=== PATIENT | female | born 1940 | race Caucasian/White ===

== ENCOUNTER 2018-02-07 15:08 | Outpatient (REF) | payer MEDICARE, OTHER, SELFPAY ==
[2018-02-07 17:02] LABS: Bilirubin Negative (Negative); Blood Negative (Negative); Clarity Cloudy; Glucose Negative (Negative); Ketones Negative (Negative); Leukocyte Esterase Trace (Negative); Nitrite Negative (Negative); Specific Gravity >= 1.030 (1.005-1.025); pH 5.5 (5-8)
[2018-02-07 17:26] LABS: C & S Indicated? No/Sq. Contamination; Crystals Many Amorphous HPF (Negative); Epithelial Cells Many HPF (Negative)
== END 2018-02-07 15:28 ==
LOC: LBN 15:08
PROVIDERS: PCP Family Medicine
DX: R35.0 Frequency of micturition (principal)
CPT/HCPCS: 81003; 81015

== ENCOUNTER 2018-02-14 10:23 | Outpatient (CLI) | payer MEDICARE, OTHER, SELFPAY ==
[2018-02-14 12:14] LABS: ALT 16 U/L (12-78); AST 17 U/L (15-37); Albumin 3.4 g/dL (3.4-5.0); Alkaline Phosphatase 70 U/L (46-116); Anion Gap 9.5 mmol/L (3-11); BUN 13 mg/dL (7-18); Bilirubin, Total 0.8 mg/dL (0.2-1.0); CO2 25.5 mmol/L (21.0-32.0); CREATININE 1.02 mg/dL (0.55-1.02); Calcium 8.5 mg/dL (8.5-10.1); Chloride 109 mmol/L (98-107); Estimated GFR 52.55 (mL/min/1.73m2); Glucose 86 mg/dL (70-100); Potassium 3.5 mmol/L (3.5-5.1); Sodium 144 mmol/L (136-145); Total Protein 6.4 g/dL (6.4-8.2)
== END 2018-02-14 10:43 ==
PROVIDERS: PCP Family Medicine
DX: R41.3 Other amnesia (principal); R63.4 Abnormal weight loss; E05.90 Thyrotoxicosis, unspecified without thyrotoxic crisis or storm
CPT/HCPCS: 36415; 80053

== ENCOUNTER 2018-02-22 10:28 | Outpatient (CLI) | payer MEDICARE, OTHER, SELFPAY ==
[2018-02-22 12:10] LABS: TSH (W/Ref FT4) 0.55 uIU/mL (0.358-3.74)
== END 2018-02-22 10:48 ==
PROVIDERS: PCP Family Medicine
DX: R63.4 Abnormal weight loss (principal)
CPT/HCPCS: 36415; 84443

== ENCOUNTER 2018-11-01 02:04 | Outpatient (CLI) | payer MEDICARE, OTHER, SELFPAY ==
[2018-11-01 13:40] LABS: ALT 23 U/L (12-78); AST 25 U/L (15-37); Albumin 3.3 g/dL (3.4-5.0); Alkaline Phosphatase 71 U/L (46-116); Anion Gap 13.2 mmol/L (3-11); BUN 11 mg/dL (7-18); Bilirubin, Total 0.7 mg/dL (0.2-1.0); CO2 30.8 mmol/L (21.0-32.0); Calcium 8.5 mg/dL (8.5-10.1); Chloride 104 mmol/L (98-107); Glucose 87 mg/dL (70-100); Sodium 148 mmol/L (136-145); TSH (W/Ref FT4) 0.21 uIU/mL (0.358-3.74); Total Protein 6.3 g/dL (6.4-8.2)
[2018-11-01 13:47] LABS: Potassium 2.6 mmol/L (3.5-5.1)
[2018-11-01 14:54] LABS: FREE T4 1.75 ng/dL (0.76-1.46)
== END 2018-11-01 02:24 ==
PROVIDERS: PCP Family Medicine
DX: E05.90 Thyrotoxicosis, unspecified without thyrotoxic crisis or storm (principal); F03.90 Unspecified dementia, unspecified severity, without behavioral disturbance, psychotic disturbance, mood disturbance, and anxiety; F41.9 Anxiety disorder, unspecified; G47.00 Insomnia, unspecified; I10 Essential (primary) hypertension; I48.91 Unspecified atrial fibrillation; R41.3 Other amnesia
CPT/HCPCS: 36415; 80053; 84439; 84443

== ENCOUNTER 2018-12-16 12:50 | Outpatient (CLI) | payer MEDICARE, OTHER, SELFPAY ==
[2018-12-16 14:54] LABS: ALT 19 U/L (12-78); AST 15 U/L (15-37); Albumin 3.7 g/dL (3.4-5.0); Alkaline Phosphatase 71 U/L (46-116); Anion Gap 12.6 mmol/L (3-11); BUN 21 mg/dL (7-18); Bilirubin, Total 0.3 mg/dL (0.2-1.0); CO2 23.4 mmol/L (21.0-32.0); CREATININE 1.02 mg/dL (0.55-1.02); Calcium 8.9 mg/dL (8.5-10.1); Chloride 107 mmol/L (98-107); Estimated GFR 52.41 (mL/min/1.73m2); Glucose 98 mg/dL (70-100); Potassium 4.1 mmol/L (3.5-5.1); Sodium 143 mmol/L (136-145); TSH (W/Ref FT4) 9.71 uIU/mL (0.358-3.74); Total Protein 6.6 g/dL (6.4-8.2)
== END 2018-12-16 13:10 ==
PROVIDERS: PCP Family Medicine
DX: F41.9 Anxiety disorder, unspecified; E03.9 Hypothyroidism, unspecified
CPT/HCPCS: 36415; 80053; 84439; 84443

== ENCOUNTER 2019-02-24 11:09 | Outpatient (CLI) | payer MEDICARE, OTHER, SELFPAY ==
[2019-02-24 13:37] LABS: Anion Gap 8.2 mmol/L (3-11); BUN 18 mg/dL (7-18); CO2 27.8 mmol/L (21.0-32.0); CREATININE 1.12 mg/dL (0.55-1.02); Calcium 8.8 mg/dL (8.5-10.1); Chloride 111 mmol/L (98-107); Estimated GFR 47.05 (mL/min/1.73m2); Glucose 76 mg/dL (70-100); Potassium 4.4 mmol/L (3.5-5.1); Sodium 147 mmol/L (136-145)
== END 2019-02-24 11:29 ==
PROVIDERS: PCP Family Medicine
DX: N28.9 Disorder of kidney and ureter, unspecified (principal); E03.9 Hypothyroidism, unspecified
CPT/HCPCS: 36415; 80048; 84439; 84443

== ENCOUNTER 2019-03-19 16:11 | Emergency (ER) | payer MEDICARE, OTHER, SELFPAY ==
[2019-03-19 16:22] VITALS: BP 108/83; PULSE 99; RESP 20; TEMP 37.4; O2SAT 97
--- NOTE | 2019-03-19 16:53 | W.ED.GENAD ---
Discharge Plan Disposition Patient Disposition: HOME Condition: Good Discharge Details Chief Complaint: Orthopedic Clinical Impression: Back pain, Sciatica Primary Care Provider: Nikki Munguia ED Provider: Rosaline Crawford Home Meds and New Rx's Prescriptions: No Action cholecalciferol (vitamin D3) [Vitamin D3] 2,000 UNIT capsule 2,000 unit PO DAILY Qty: 100 RF: 0 atorvastatin [Lipitor] 20 mg tablet 20 mg PO QPM Qty: 90 RF: 4 levothyroxine 88 mcg capsule 88 mcg PO DAILY Qty: 90 RF: 11 aspirin, buffered 325 MG tablet 325 mg PO QAM RF: 0 quetiapine [Seroquel] 25 mg tablet 25 mg PO DAILY RF: 0 sertraline 100 mg tablet 50 mg PO DAILY RF: 0 Discharge Instructions Instructions: Sciatica (ED), Back Pain (ED) Additional Instructions: Rest activities as tolerated. Use Tylenol 1000 mg for pain morning and evening. Use walker for ambulation. Use glasses when ambulating. Follow-up with physical therapy for evaluation as discussed. Follow-up promptly with her primary care doctor for reevaluation. Next line return for any worsening, concerns or alarming symptoms sooner if needed Stand Alone Forms: Physical Therapy Referral Discharge Data Discharge Date/Time-TO BE ENTERED AT DEPARTURE: 03/19/19 19:21 Medical Decision Making Is a very pleasantly demented 78-year-old patient accompanied by her and daughter. She lives with her and is regularly seen by her daughter. Family is concerned for complaints of observing right leg pain and back pain for the last several weeks without obvious injury, falls or trauma. Insidious onset over the last few weeks with occasional difficulty getting in and out of cars or changing position. Patient reportedly using her hands to help lift her right leg. Right leg seems to be patient's site of pain specifically the right thigh/hip area. At this time patient is exhibiting no obvious weakness in her lower legs, her physical exam is benign and she is ambulating without assistance or difficulty. After discussion with the family will pursue x-ray evaluation of the lumbar spine, pelvis, hips and right femur given the complaints of biopsy revealing difficulty and complaints of pain. Patient ultimately has arthritis through the hips bilaterally with no obvious changes noted in the femur. Patient is noted to have degenerative disc disease through the majority of the lumbar spine without obvious identified fracture or vertebral height loss. I feel likely this patient is experiencing degenerative disc and possibly radicular pain secondary to spinal changes. Patient is noted to have osteoarthritis bilaterally. I have encouraged use of walker at home as well as glasses to avoid tripping. Also encouraged Tylenol for pain relief. Physical therapy referral provided for outpatient management. Encourage close follow-up with primary care doctor to follow-up on reported pain. Family agrees with plan of care. The patient was stable and requested discharge. Prior to discharge, my usual and customary return precautions were reviewed with the patient - this included follow-up instructions and reasons to return to the Emergency Department if conditions worsens, does not improve as expected, or other new concerns arise. HPI General Date/Time Provider Initiated Documentation: 03/19/19 16:18. HPI Narrative: 78-year-old woman accompanied by and daughter patient presents for complaints of right leg pain. Per patient has also been complaining of back pain intermittently for the last several weeks if not months. Family has noticed her using her arms to help assist movement of her right leg when transitioning in or out of a car or changing positions. Patient has a mild shuffling gait which is her baseline. Dementia somewhat limits her history. History provided primarily by family members. No obvious falls in the last several months. Denies any ill feeling, fever, chills, nausea, vomiting. Eating and drinking without difficulty. No personality changes obvious lethargy noted per the family. No changes in bowels or urination. Patient typically walks assisted by her but no assistive devices used. Patient denies numbness, tingling or weakness of the legs. Related Data Home Medications Medication Instructions Recorded Confirmed aspirin, buffered 325 mg PO QAM 11/09/12 03/19/19 cholecalciferol (vitamin D3) 2,000 unit PO DAILY #100 cap 02/27/17 03/19/19 [Vitamin D3] atorvastatin 20 mg tablet 20 mg PO QPM #90 tab 01/21/19 03/19/19 levothyroxine 88 mcg capsule 88 mcg PO DAILY #90 cap 02/13/19 03/19/19 quetiapine [Seroquel] 25 mg PO DAILY 03/19/19 03/19/19 sertraline 50 mg PO DAILY 03/19/19 03/19/19 Previous Rx's Medication Instructions Recorded cholecalciferol (vitamin D3) 2,000 unit PO DAILY #100 cap 02/27/17 [Vitamin D3] atorvastatin 20 mg tablet 20 mg PO QPM #90 tab 01/21/19 levothyroxine 88 mcg capsule 88 mcg PO DAILY #90 cap 02/13/19 Allergies Allergy/AdvReac Type Severity Reaction Status Date / Time codeine AdvReac sick to Verified 03/19/19 16:25 stomache General Stated Complaint: Orthopedic LU: 4 Review of Systems Review of Systems ROS Unobtainable: All systems reviewed & are unremarkable except as noted in HPI and below Constitutional Constitutional: Denies chills, Denies fatigue, Denies fever(s), Denies frequent falls, Denies lethargy, Denies malaise, Denies poor appetite and Denies weakness ENT Ears, Nose, Mouth, and Throat: Denies neck pain Gastrointestinal Gastrointestinal: Denies abdominal pain, Denies nausea and Denies vomiting Genitourinary Genitourinary: Denies urinary frequency, Denies dysuria and Denies urinary urgency Musculoskeletal Musculoskeletal: Reports abnormal gait, Reports back pain, Reports loss of height, Denies neck pain, Denies numbness, Reports radiating pain into limb, Denies stiffness and Denies tingling Neurologic Neurologic: Reports abnormal gait, Denies frequent falls, Denies numbness, Denies tingling and Denies weakness Endocrine Endocrine: Denies fatigue [facility] Medical History Anxiety (Chronic) Atrial fibrillation (Active) Atrial fibrillation Benign hypertension (Active) Dementia (Active) Onset 2012 Essential hypertension External hemorrhoids (Active 01/18/13) Excision by Dr. Levy Parham 01-18-13--admitted postoperative for pain control. Goiter (Acute) Hip pain, chronic (Resolved) Resolved. Hyperlipidemia (Active) Hyperlipidemia Hyperthyroidism (Acute 12/26/12) Hypothyroidism Impacted cerumen of left ear (Inactive) Memory impairment of gradual onset (Acute 12/26/12) Previous MMSE 23/30 & 22/30 Osteopenia (Chronic) Swelling of left ankle joint (Chronic 11/12/17) Urge incontinence (Chronic) Weakness generalized (Acute) Weight loss observed on examination (Acute 02/20/17) Surgical History Abdominal hysterectomy Anoscopy (01/15/13) DR. PARHAM Status post abdominal hysterectomy (Resolved) Family History (Updated 12/31/18 @ 14:41 by Kranthi Kan) Mother , AGE 94 Hip fx Depression Father , 72 Essential hypertension Heart disease Myocardial infarction Bladder cancer Brother No problems noted. Daughter , 52 Essential hypertension Depression Breast cancer Daughter Breast cancer Daughter Essential hypertension Depression Hyperlipidemia Daughter Depression Paternal Grandfather Heart disease Maternal Grandmother Breast cancer Paternal Grandmother Uterine cancer Social History Smoking/Tobacco Use Status: Former Tobacco Use Quit Date: 06/04/83 Tobacco: How many years used: 25 Second Hand Exposure: Yes Alcohol Intake: current Alcohol Intake frequency: holidays/special occasions only Alcohol type: hard liquor Drug use: Never Substance use type: does not use Caregiver/Support person: Yes Household members: spouse Housing: apartment Communication Needs: None Do you need help understanding health information?: Often Pets and animals: Yes Pets and animals: dog(s) Sexually active: No Do you think of yourself as: straight/heterosexual Current gender identity: female What is your relationship status?: How often do you talk on the phone with friends or family?: once per week How often do you get together with friends or relatives?: three or more times per week How often do you attend restoration or mandaeism services?: decline to answer Do you belong to any clubs or organized social groups?: no Panel score (0-1 are the most socially isolated patients): 2 What type of physical activity do you participate in: none Frequency: does not exercise Carmella/Cheondoism: Yazidism Special carmella needs: No Seatbelt use: always Drive intox or ride w/intox maintenance truck 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 Well hydrated. Alert and alert. NECK: Normal visual inspection. FROM. Trachea midline. No Midline tenderness. Back; no midline tenderness to cervical, thoracic or lumbar spine. No SI joint tenderness or sciatic tenderness with palpation. No obvious CVA tenderness. No rashes. MUSCULOSKELETAL: Normal Gait. FROM of all extremities. Straight leg raise intact bilaterally. Strength intact bilaterally. Internal and external rotation of the hips without pain or limitation. No knee pain with palpation. Obvious palpable tenderness of the knees or hips. No calf pain with palpation, no lower leg swelling or edema present. No weakness with flexion extension of feet. No foot drop. Sensation equal and intact bilaterally. Pulses intact and equal bilaterally. SKIN: Normal. Dry. No rashes. NEURO: Alert and awake. Speech clear. PSYCH: Normal affect. Cooperative. Course Vital Signs Vital signs: Vital Signs Temperature 37.4 C 03/19/19 16:22 Pulse 99 H 03/19/19 16:22 Respiratory Rate 20 03/19/19 16:22 Blood Pressure 108/83 03/19/19 16:22 Pulse Oximetry 97 03/19/19 16:22 Temperature 37.4 C 03/19/19 16:22 Temperature Source Skin 03/19/19 16:22 Pulse 99 H 03/19/19 16:22 Respiratory Rate 20 03/19/19 16:22 Respiratory Effort Non-Labored 03/19/19 16:24 Blood Pressure 108/83 03/19/19 16:22 Blood Pressure Position Sitting 03/19/19 16:22 Pulse Oximetry 97 03/19/19 16:22 Oxygen Delivery Method Room Air 03/19/19 16:22 Oxygen Flow Rate 0 03/19/19 16:22 Pain Level 5 03/19/19 16:22
--- NOTE | 2019-03-19 17:44 | DI.RAD_ITS ---
EXAM: XR HIP PELVIS ADULT BL INDICATION: pain. COMPARISON: BILATERAL HIPS ADULT from 12/22/2013 TECHNIQUE: 2D digital imaging was performed. FINDINGS: There are degenerative changes of both hips, right greater than left. No fracture or dislocation is seen. Spurring is also noted at the SI joints. IMPRESSION: Degenerative changes of both hips, right greater than left.
--- NOTE | 2019-03-19 17:52 | DI.RAD_ITS ---
EXAM: XR LUMBAR SPINE COMPLETE INDICATION: pain, back, hips, right thigh. COMPARISON: No exams were available for comparison TECHNIQUE: 2D digital imaging was performed. FINDINGS: No compression fracture, spondylolysis or spondylolisthesis is seen. There are degenerative disc ch anges from L2-3 through L5-S1. There are prominent facet degenerative changes at these levels as wel l. The degenerative changes cause mild scoliosis. There are degenerative changes of both SI joints. IMPRESSION: Degenerative changes. No acute abnormality.
--- NOTE | 2019-03-19 17:52 | DI.RAD_ITS ---
EXAM: XR FEMUR RT INDICATION: pain. COMPARISON: No exams were available for comparison TECHNIQUE: 2D digital imaging was performed. FINDINGS: No fracture or hip dislocation is seen. There are moderate to severe degenerative changes of the hi p joint, with joint space narrowing and acetabular spurring. Degenerate changes are also noted in th e knee. IMPRESSION: Degenerative changes. No acute abnormality.
--- NOTE | 2019-03-19 18:12 | DI.VRAD_ITS ---
PROCEDURE INFORMATION: Exam: XR Right Femur Exam date and time: 03/19/2019 5:52 PM Clinical history: 78 years old, female; Pain; Hip and thigh; Right TECHNIQUE: Imaging protocol: XR Right femur. Views: 2 views. COMPARISON: No relevant prior studies available. FINDINGS: Bones/joints: Osteoarthritic degenerative changes of the right hip. No fracture or dislocation. Degenerative changes of the right knee. Soft tissues: Unremarkable. IMPRESSION: No acute findings. If clinical symptoms persist recommend followup film in 7-10 days. Dictated and Authenticated by: Tereza Rust MD. Ordering:VIRGINIA Waggoner MD
--- NOTE | 2019-03-19 18:16 | DI.VRAD_ITS ---
PROCEDURE INFORMATION: Exam: XR Bilateral Hips with Pelvis when Performed Exam date and time: 03/19/2019 5:52 PM Clinical history: 78 years old, female; Hip pain; Bilateral TECHNIQUE: Imaging protocol: XR bilateral hips with pelvis when performed. Views: 2 views. COMPARISON: CR BILATERAL HIPS ADULT 22/12/2013 10:16 FINDINGS: Bones/joints: Degenerative changes of the lower lumbar spine. Osteoarthritic changes of the right and left hip. No evidence for fracture or dislocation. Soft tissues: Unremarkable. IMPRESSION: Bilateral osteoarthritis of the right and left hip. Dictated and Authenticated by: Tereza Rust MD. Ordering:VIRGINIA Waggoner MD
--- NOTE | 2019-03-19 18:18 | DI.VRAD_ITS ---
PROCEDURE INFORMATION: Exam: XR Lumbosacral Spine, 4 or 5 Views Exam date and time: 03/19/2019 5:52 PM Clinical history: 78 years old, female; Low back pain and sciatica; Bilateral TECHNIQUE: Imaging protocol: XR of the lumbosacral spine, 4 or 5 views. COMPARISON: CR XR HIP PELVIS ADULT BL 19/03/2019 17:39 FINDINGS: Vertebrae: Osteoporosis. Multilevel degenerative changes of the lower thoracic and lumbar spine. Mild dextroscoliosis of the lumbar spine. Degenerative changes of the right hand. Degenerative disc changes at L2-3, L3-4, L4-5, and L5 S1. Multilevel facet arthropathy. The posterior elements are intact. Soft tissues: Unremarkable. IMPRESSION: Spondylosis and scoliosis of the lumbar spine. Dictated and Authenticated by: Tereza Rust MD. Ordering:VIRGINIA Waggoner MD
== END 2019-03-19 19:21 | disposition home or self-care (01) ==
PROVIDERS: Emergency Provider Physician Assistant; PCP Family Medicine
DX: M54.41 Lumbago with sciatica, right side (principal); I10 Essential (primary) hypertension
CPT/HCPCS: 73521; 73552; 99284; 72110; 99282

== ENCOUNTER 2019-03-24 11:34 | Outpatient (CLI) | payer MEDICARE, OTHER, SELFPAY ==
[2019-03-24 13:46] LABS: Abs Immature Grans 0.02 k/cumm (0.0-0.09); Absolute Basophil Count 0.04 k/cumm (0.0-0.2); Absolute Eosinophil Count 0.36 k/cumm (0.0-0.7); Absolute Lymphocyte Count 1.58 k/cumm (1.2-3.4); Absolute Monocyte Count 0.52 k/cumm (0.11-0.7); Absolute Neutrophil Count 3.41 k/cumm (1.2-6.7); Basophils % 0.7; Eosinophils % 6.1; HCT 41.5 % (36.0-46.0); HGB 13.5 g/dL (12.0-15.5); Immature Grans % 0.3; Lymphocytes % 26.6; Mean Corp. HGB Concentration 32.5 g/dL (32.0-36.0); Mean Corpuscular Hemoglobin 32.4 pg (27.0-33.0); Mean Corpuscular Volume 99.5 fL (80-95); Mean Platelet Volume 11.7 fL (8.0-11.0); Monocytes % 8.8; Neutrophils % 57.5; Platelet Count 165 x1000/uL (130-400); RBC 4.17 m/cumm (4.00-5.20); RBC Distribution Width 12.6 % (11.7-14.6); White Blood Cell Count 5.93 k/cumm (4.4-10.8)
[2019-03-24 14:04] LABS: ALT 40 U/L (14-59); AST 42 U/L (15-37); Albumin 3.8 g/dL (3.4-5.0); Alkaline Phosphatase 64 U/L (46-116); Anion Gap 12.8 mmol/L (3-11); BUN 21 mg/dL (7-18); Bilirubin, Total 0.7 mg/dL (0.2-1.0); CO2 23.2 mmol/L (21.0-32.0); CREATININE 1.17 mg/dL (0.55-1.02); Chloride 107 mmol/L (98-107); Estimated GFR 44.74 (mL/min/1.73m2); Glucose 91 mg/dL (70-100); Potassium 4.1 mmol/L (3.5-5.1); Sodium 143 mmol/L (136-145); TSH (W/Ref FT4) 4.15 uIU/mL (0.36-3.74); Total Protein 7.4 g/dL (6.4-8.2)
[2019-03-24 14:22] LABS: FREE T4 1.25 ng/dL (0.76-1.46)
== END 2019-03-24 11:54 ==
PROVIDERS: Internal Medicine; PCP Family Medicine; Visit Provider Family Medicine
DX: F41.9 Anxiety disorder, unspecified (principal); R53.1 Weakness; R50.9 Fever, unspecified
CPT/HCPCS: 36415; 80053; 84439; 84443; 85025

== ENCOUNTER → 2019-05-05 09:23 | Outpatient (BNVA) | payer MEDICARE, OTHER, SELFPAY | PROVIDERS: PCP Family Medicine; Referring Provider Internal Medicine; Visit Provider Student in an Organized Health Care Education/Training Program | DX: M70.61 Trochanteric bursitis, right hip (principal); M70.62 Trochanteric bursitis, left hip; M16.11 Unilateral primary osteoarthritis, right hip; M16.12 Unilateral primary osteoarthritis, left hip; I10 Essential (primary) hypertension | CPT/HCPCS: 20610; 99203; 99214; J1040 ==

== ENCOUNTER → 2019-06-23 10:39 | Outpatient (BNVA) | payer MEDICARE, OTHER, SELFPAY | PROVIDERS: PCP Family Medicine; Referring Provider Family Medicine; Visit Provider Student in an Organized Health Care Education/Training Program | DX: M70.61 Trochanteric bursitis, right hip (principal); M16.11 Unilateral primary osteoarthritis, right hip; I10 Essential (primary) hypertension | CPT/HCPCS: 99213 ==

== ENCOUNTER 2019-06-27 11:11 | Outpatient (CLI) | payer MEDICARE, OTHER, SELFPAY ==
[2019-06-27 12:55] LABS: Anion Gap 7.4 mmol/L (3-11); BUN 20 mg/dL (7-18); CO2 27.6 mmol/L (21.0-32.0); CREATININE 1.08 mg/dL (0.55-1.02); Calcium 9.3 mg/dL (8.5-10.1); Chloride 108 mmol/L (98-107); Estimated GFR 49.07 (mL/min/1.73m2); Glucose 82 mg/dL (74-106); Potassium 4.3 mmol/L (3.5-5.1); Sodium 143 mmol/L (136-145); TSH (W/Ref FT4) 1.12 uIU/mL (0.36-3.74)
== END 2019-06-27 11:31 ==
PROVIDERS: PCP Family Medicine; Visit Provider Family Medicine
DX: E05.90 Thyrotoxicosis, unspecified without thyrotoxic crisis or storm (principal); N18.9 Chronic kidney disease, unspecified
CPT/HCPCS: 36415; 80048; 84443

== ENCOUNTER 2019-11-26 22:01 | Outpatient (REF) | payer MEDICARE, OTHER, SELFPAY | END 2019-11-26 22:21 | LOC: LBN 22:01 | PROVIDERS: PCP Family Medicine; Visit Provider Family Medicine | DX: R30.0 Dysuria (principal) | CPT/HCPCS: 87077; 87086; 87186 ==

== ENCOUNTER 2019-12-30 02:40 | Outpatient (CLI) | payer MEDICARE, OTHER, SELFPAY ==
[2019-12-30 12:55] LABS: ALT 14 U/L (14-59); AST 18 U/L (15-37); Albumin 3.7 g/dL (3.4-5.0); Alkaline Phosphatase 50 U/L (46-116); Anion Gap 9.8 mmol/L (3-11); BUN 22 mg/dL (7-18); Bilirubin, Total 0.4 mg/dL (0.2-1.0); CO2 26.2 mmol/L (21.0-32.0); CREATININE 1.06 mg/dL (0.55-1.02); Chloride 107 mmol/L (98-107); Estimated GFR 50.01 (mL/min/1.73m2); Glucose 97 mg/dL (74-106); Potassium 4.2 mmol/L (3.5-5.1); Sodium 143 mmol/L (136-145); TSH (W/Ref FT4) 2.89 uIU/mL (0.36-3.74); Total Protein 7.2 g/dL (6.4-8.2)
== END 2019-12-30 03:00 ==
PROVIDERS: PCP Family Medicine; Visit Provider Family Medicine
DX: E03.9 Hypothyroidism, unspecified (principal); E05.90 Thyrotoxicosis, unspecified without thyrotoxic crisis or storm; F03.90 Unspecified dementia, unspecified severity, without behavioral disturbance, psychotic disturbance, mood disturbance, and anxiety; I10 Essential (primary) hypertension; I48.91 Unspecified atrial fibrillation
CPT/HCPCS: 36415; 80053; 84443

== ENCOUNTER 2020-04-06 14:38 | Emergency (ER) | payer MEDICARE, OTHER, MEDICAID, SELFPAY ==
[2020-04-06 14:43] VITALS: BP 138/80; PULSE 68; RESP 18; TEMP 36.7; O2SAT 96
--- NOTE | 2020-04-06 14:55 | ED.GENADUL_ITS ---
Discharge Plan Disposition Patient Disposition: HOME Condition: Improving Discharge Details Clinical Impression: Facial laceration Primary Care Provider: Stefanie Jack ED Provider: Julian Phelan Home Meds and New Rx's Prescriptions: Continued sertraline 100 mg tablet 100 mg PO DAILY Qty: 90 RF: 3 diclofenac sodium 1 % gel 2 gm TP QID PRN (Reason: pain) Qty: 150 RF: 1 cholecalciferol (vitamin D3) [Vitamin D3] 2,000 UNIT capsule 2,000 unit PO DAILY Qty: 100 RF: 0 atorvastatin [Lipitor] 20 mg tablet 20 mg PO QPM Qty: 90 RF: 4 levothyroxine 88 mcg capsule 88 mcg PO DAILY Qty: 90 RF: 11 acetaminophen 500 mg tablet 500 mg PO TID Qty: 100 RF: 0 Boost 0.04 gram- 1 kcal/mL liquid See Rx Instructions PO .COMPLEX Qty: 6399 RF: 4 quetiapine 50 mg tablet 50 mg PO QHS PRN (Reason: Paranoia) Qty: 90 RF: 2 quetiapine [Seroquel] 25 mg tablet 25 mg PO BID Qty: 180 RF: 3 aspirin,buffd-calcium carb-mag 325 MG tablet 325 mg PO QAM RF: 0 Discharge Instructions Instructions: Facial Laceration (ED) Additional Instructions: The lacerations will slowly dissolve and fall out over approximately 7 days time. Keep wound covered for 24 to 48 hours, then may let go to air dry. Return for any acute concerns. Cool compress to reduce pain and swelling. You will likely have progression of left sided black eye. Medical Decision Making 79-year-old female entering her home, with her dog present, tripped on the carpet and fell forward striking a such. Right face. No loss of consciousness. She denies head/neck/chest or back pain. Her last tetanus was in 2019. She has a left supraorbital laceration. She was referred for CT scan to rule out facial fracture or intracranial injury. The left supraorbital laceration was repaired with interrupted 5-0 Vicryl sutures. Patient stable and improved. She is appropriate for discharge to home at this time. HPI General Mode of arrival: ambulatory . Date/Time Provider Initiated Documentation: 04/06/20 14:39 . Limitations to Documentation: no limitations . Information obtained by: patient and family . History of Present Illness 79 year old F presents to the emergency department with the chief complaint of Trip and fall, left face injury, described as moderate, Quality is described as dull, and is localized to the face and left. Patient reports no radiation. Patient started experiencing this minute(s) and it has been constant. No relieving factors improve symptom(s), No exacerbating factors reported . Patient notes denies chest pain, headaches, syncope and weakness. Patient did receive the following treatments prior to arrival, none Related Data Home Medications Medication Instructions Recorded Confirmed aspirin,buffd-calcium carb-mag 325 mg PO QAM 11/09/12 03/12/20 cholecalciferol (vitamin D3) 2,000 unit PO DAILY #100 cap 02/27/17 03/12/20 [Vitamin D3] atorvastatin 20 mg tablet 20 mg PO QPM #90 tab 01/21/19 03/12/20 levothyroxine 88 mcg capsule 88 mcg PO DAILY #90 cap 02/13/19 03/12/20 acetaminophen 500 mg tablet 500 mg PO TID #100 tab 04/07/19 03/12/20 sertraline 100 mg tablet 100 mg PO DAILY #90 tab 04/10/19 03/12/20 food supplemt, lactose-reduced See Rx Instructions PO .COMPLEX 04/22/19 03/12/20 0.04 gram-1 kcal/mL oral liquid #6399 ml quetiapine 50 mg tablet 50 mg PO QHS PRN #90 tab 11/13/19 03/12/20 quetiapine 25 mg tablet 25 mg PO BID #180 tab 02/03/20 03/12/20 diclofenac sodium 1 % topical gel 2 gm TP QID PRN #150 gm 02/11/20 03/12/20 Previous Rx's Medication Instructions Recorded cholecalciferol (vitamin D3) 2,000 unit PO DAILY #100 cap 02/27/17 [Vitamin D3] atorvastatin 20 mg tablet 20 mg PO QPM #90 tab 01/21/19 levothyroxine 88 mcg capsule 88 mcg PO DAILY #90 cap 02/13/19 acetaminophen 500 mg tablet 500 mg PO TID #100 tab 04/07/19 sertraline 100 mg tablet 100 mg PO DAILY #90 tab 04/10/19 food supplemt, lactose-reduced See Rx Instructions PO .COMPLEX 04/22/19 0.04 gram-1 kcal/mL oral liquid #6399 ml quetiapine 50 mg tablet 50 mg PO QHS PRN #90 tab 11/13/19 quetiapine 25 mg tablet 25 mg PO BID #180 tab 02/03/20 diclofenac sodium 1 % topical gel 2 gm TP QID PRN #150 gm 02/11/20 Allergies Allergy/AdvReac Type Severity Reaction Status Date / Time codeine AdvReac sick to Verified 03/11/20 14:43 stomache General Stated Complaint: FacialProb LU: 3 Review of Systems Narrative: No loss of consciousness. Denies neck/back/chest/abdominal or extremity pain. Last tetanus in 2019. 6 systems reviewed and otherwise negative [facility] Medical History (Updated 04/06/20 @ 16:16 by Julian Phelan MD) Anxiety Arthritis of left hip Arthritis of right hip Atrial fibrillation Bowel dysfunction Dementia Onset 2012 Essential hypertension External hemorrhoids (01/18/13) Excision by Dr. Levy Epperson 01-18-13--admitted postoperative for pain control. Goiter Greater trochanteric bursitis of left hip Greater trochanteric bursitis of right hip Injection: 05/05/2019 Hyperlipidemia Hyperthyroidism (12/26/12) Hypothyroidism Impacted cerumen of left ear Irritability and anger Memory impairment of gradual onset (12/26/12) Previous MMSE 23/30 & 22/30 Osteopenia Swelling of left ankle joint (11/12/17) Urge incontinence Weakness generalized Weight loss observed on examination (02/20/17) Surgical History Abdominal hysterectomy Anoscopy (01/15/13) DR. EPPERSON Status post abdominal hysterectomy Family History Mother , AGE 94 Hip fx Depression Father , 72 Essential hypertension Heart disease Myocardial infarction Bladder cancer Brother Dementia Daughter , 52 Depression Hypertension High cholesterol Daughter Breast cancer Daughter Essential hypertension Depression Hyperlipidemia Daughter Depression Breast cancer High cholesterol Hypertension Paternal Grandfather Heart disease Alzheimer disease Maternal Grandmother Breast cancer Ovarian cancer Paternal Grandmother Uterine cancer Social History Smoking/Tobacco Use Status: Former Tobacco Use Quit Date: 06/04/83 Tobacco: How many years used: 25 Second Hand Exposure: Yes Smoking risk assessment performed?: Yes Alcohol Intake: former Drug use: Never Substance use type: does not use Counseling given: No Counseling provided: none Caregiver/Support person: Yes Household members: spouse Housing: apartment Communication Needs: None Do you need help understanding health information?: Always Pets and animals: Yes Pets and animals: dog(s) Sexually active: No Do you think of yourself as: straight/heterosexual Current gender identity: female What is your relationship status?: How often do you talk on the phone with friends or family?: twice per week How often do you get together with friends or relatives?: three or more times per week Do you belong to any clubs or organized social groups?: no Panel score (0-1 are the most socially isolated patients): 2 What type of physical activity do you participate in: none Carmella/Orthodox: Adventism Special carmella needs: No Seatbelt use: always Drive intox or ride w/intox tank driver: No Do you feel safe at home: Yes Do you feel safe in your relationship?: Yes Exam Narrative Exam Narrative: GEN: awake, alert, oriented 3. Pleasant, well groomed, interactive. HEAD: Normocephalic ENT: Mucous membranes moist, left supraorbital/forehead laceration approximately 3 cm, left periorbital ecchymosis, abrasion inferior. No facial anesthesia. No bony facial tenderness or instability. Tympanic membranes clear bilaterally, External ear exam unremarkable EYES: PERRL, EOMI NECK: Full ROM, no CHERI, no menigismus CHEST/RESP: Nontender, clear to auscultation bilateral, no wheeze/rhonchi/rales CARDIOVASCULAR: RRR, no murmur, rub hill. 2+ Rad pulse bilateral ABDOMEN: Soft, nontender, no mass. +Bowel sounds EXT: Full ROM, no edema, no rash Neuro: Grossly normal neurologic exam, conversant, interactive. Psych: Speech fluent, thoughts congruent, affect normal Course Vital Signs Vital signs: Vital Signs Temperature 36.7 C 04/06/20 14:43 Pulse 68 04/06/20 14:43 Respiratory Rate 18 04/06/20 14:43 Blood Pressure 138/80 04/06/20 14:43 Pulse Oximetry 96 04/06/20 14:43 Temperature 36.7 C 04/06/20 14:43 Pulse 68 04/06/20 14:43 Respiratory Rate 18 04/06/20 14:43 Respiratory Effort Non-Labored 04/06/20 14:48 Blood Pressure 138/80 04/06/20 14:43 Blood Pressure Position Sitting 04/06/20 14:43 Pulse Oximetry 96 04/06/20 14:43 Oxygen Delivery Method Room Air 04/06/20 14:43 Oxygen Flow Rate 0 04/06/20 14:43 Procedures Laceration Laceration 1: Site: face Side (If applicable): left Size (cm): 3 Description: linear Depth: simple, single layer Local Anesthetic: Lidocaine 1% Amount of anesthesia used (mL): 2 Pre-repair: wound explored, irrigated extensively and deep structures intact Skin layer closed with: vicryl Size (cm): 5-0 Number of sutures: 6 Technique: simple, interrupted
[2020-04-06] MEDS: Lidocaine/Epinephri/Tetracaine Topical Gel 3 ML (15:03)
[2020-04-06] MEDS: Lidocaine/Epinephri/Tetracaine Topical Gel 3 ML TP (15:03)
--- NOTE | 2020-04-06 16:23 | DI.CT_ITS ---
EXAM: CT HEAD FACIAL WO CLINICAL HISTORY: Trauma, Pain, Left. TECHNIQUE: Imaging Protocol: Axial computed tomography images with coronal and sagittal reformatted images were created and reviewed COMPARISON: No exams were available for comparison FINDINGS: CT Head: Ventricles and Extra axial spaces: Normal in size and morphology for the patient's age. Hemorrhage: None. Cerebral parenchyma: No acute territorial infarct. There are areas of decreased attenuation in the w kassi matter most consistent with chronic microvascular ischemic change. Midline shift: None. Brainstem/Cerebellum: Normal. Calvarium: Normal. Visualized Paranasal sinuses/Mastoids: Clear. Soft Tissues: Small left frontal scalp hematoma. CT Face: Facial Bones: No definite fracture is noted in facial bones. Sinuses and Mastoids: Unremarkable. Globes, extraocular muscles, optic nerves and retrobulbar fat: Normal. Upper aerodigestive tract: Normal. Mandible and bilateral temporomandibular joints: Normal. Soft tissues: There is soft tissue swelling over the left maxilla. IMPRESSION: 1. No acute intracranial process. 2. No acute facial fracture. 3. Soft tissue swelling over the left maxilla and left frontal bone. RADIATION DOSE DELIVERED: 1,447.13mGy.cm Total DLP DATA REPOSITORY: All CT scans at this facility are submitted to the National Radiology Data Registry (NRDR) Dose Index Registry (DIR) with the [employer] (ACR). RADIATION OPTIMIZATION: All CT scans at this facility use at least one of these dose optimization te chniques: automated exposure control; mA and/or kV adjustment per patient size (includes targeted exa ms where dose is matched to clinical indication); or iterative reconstruction.
--- NOTE | 2020-04-06 16:49 | DI.VRAD_ITS ---
PROCEDURE INFORMATION: Exam: CT Maxillofacial Without Contrast Exam date and time: 04/06/2020 3:32 PM Age: 79 years old Clinical indication: Other: Trauma, pain, lac above left eye TECHNIQUE: Imaging protocol: Computed tomography images of the face without contrast. Radiation optimization: All CT scans at this facility use at least one of these dose optimization techniques: automated exposure control; mA and/or kV adjustment per patient size (includes targeted exams where dose is matched to clinical indication); or iterative reconstruction. COMPARISON: No relevant prior studies available. FINDINGS: Orbital cavity: Normal orbits. Bones/joints: Normal nasal bones. Normal pterygoid plates. Normal zygomatic arches. Normal temporomandibular joints. Paranasal sinuses: Normal paranasal sinuses. Mastoid air cells: Normal Soft tissues: Soft tissues hematoma anterior to the left maxillary sinus . IMPRESSION: 1. No acute fractures or dislocations 2. Soft tissue swelling anterior to the left maxillary sinus PROCEDURE INFORMATION: Exam: CT Head Without Contrast Exam date and time: 04/06/2020 3:32 PM Age: 79 years old Clinical indication: Other: Trauma, pain, lac above left eye TECHNIQUE: Imaging protocol: Computed tomography of the head without contrast. Radiation optimization: All CT scans at this facility use at least one of these dose optimization techniques: automated exposure control; mA and/or kV adjustment per patient size (includes targeted exams where dose is matched to clinical indication); or iterative reconstruction. COMPARISON: No relevant prior studies available. FINDINGS: Brain: No intra or extra-axial hemorrhage or tumor mass. No acute infarction. Age-related involutional changes of the brain with slight prominence of the cortical sulci, basal cisterns and ventricles. Cerebral ventricles: No ventriculomegaly. Bones/joints: No calvarial fracture. Paranasal sinuses: Visualized sinuses are unremarkable. No fluid levels. Mastoid air cells: Visualized mastoid air cells are well aerated. Soft tissues: Scalp hematoma in the left frontal region. A 4.3 cm hematoma within the subcutaneous tissues anterior to the upper aspect of the left maxillary sinus IMPRESSION: 1. A 4.3 cm hematoma in the left face. This is in the subcutaneous tissues anterior to the upper half of the left maxillary sinus. 2. No calvarial fracture. 3. No acute findings in the brain Dictated and Authenticated by: Boby Bay MD. Ordering:KEVIN Jordan MD
== END 2020-04-06 17:07 | disposition home or self-care (01) ==
PROVIDERS: Emergency Provider Emergency Medicine
DX: S01.112A Laceration without foreign body of left eyelid and periocular area, initial encounter (principal); W01.190A Fall on same level from slipping, tripping and stumbling with subsequent striking against furniture, initial encounter; I10 Essential (primary) hypertension
CPT/HCPCS: 12013; 99282; 70450; 70486; 99281

== ENCOUNTER 2020-06-08 03:26 | Outpatient (CLI) | payer MEDICARE, OTHER, MEDICAID, SELFPAY ==
[2020-06-08 12:04] LABS: ALT 15 U/L (14-59); AST 13 U/L (15-37); Albumin 3.8 g/dL (3.4-5.0); Alkaline Phosphatase 59 U/L (46-116); Anion Gap 6.8 mmol/L (3-11); BUN 17 mg/dL (7-18); Bilirubin, Total 0.5 mg/dL (0.2-1.0); CO2 28.2 mmol/L (21.0-32.0); CREATININE 1.06 mg/dL (0.55-1.02); Calcium 8.7 mg/dL (8.5-10.1); Chloride 108 mmol/L (98-107); Estimated GFR 50.01 (mL/min/1.73m2); Glucose 87 mg/dL (74-106); Potassium 4.2 mmol/L (3.5-5.1); Sodium 143 mmol/L (136-145); TSH (W/Ref FT4) 0.83 uIU/mL (0.36-3.74); Total Protein 6.8 g/dL (6.4-8.2)
== END 2020-06-08 03:46 ==
DX: E03.9 Hypothyroidism, unspecified (principal); I10 Essential (primary) hypertension; F41.9 Anxiety disorder, unspecified; I48.91 Unspecified atrial fibrillation; R53.1 Weakness
CPT/HCPCS: 36415; 80053; 84443

== ENCOUNTER 2020-10-08 15:44 | Outpatient (REF) | payer MEDICARE, OTHER, MEDICAID, SELFPAY ==
[2020-10-10 00:14] LABS: COVID-19 RT-PCR UVMMC Result Negative (Negative)
== END 2020-10-08 15:45 | disposition home or self-care (01) ==
LOC: NCHCN 15:44
PROVIDERS: Visit Provider Physician Assistant
DX: J02.9 Acute pharyngitis, unspecified (principal); R82.998 Other abnormal findings in urine; R68.89 Other general symptoms and signs; Z20.822 Contact with and (suspected) exposure to COVID-19
CPT/HCPCS: 87077; U0003; U0005; 87070; 87086; 87186

== ENCOUNTER 2020-11-27 08:40 | Emergency (ER) | payer MEDICARE, OTHER, MEDICAID, SELFPAY ==
--- NOTE | 2020-11-27 08:43 | ED.GENADUL_ITS ---
Discharge Plan Disposition Patient Disposition: HOME Condition: Improving Discharge Details Clinical Impression: Acute exacerbation of chronic low back pain, Hip pain, Arthritis Primary Care Provider: Stefanie Jack ED Provider: Kristen Medellin Home Meds and New Rx's Prescriptions: New oxycodone 5 mg tablet 5 mg PO Q6H PRN (Reason: pain) Qty: 7 RF: 0 Continued quetiapine [Seroquel] 25 mg tablet 25 - 75 mg PO BID Qty: 360 RF: 3 Boost 0.04 gram- 1 kcal/mL liquid See Rx Instructions PO .COMPLEX Qty: 6399 RF: 4 levothyroxine 88 mcg capsule 88 mcg PO DAILY Qty: 90 RF: 11 polyethylene glycol 3350 [Miralax] 17 gram/dose powder 17 g PO HS PRNRF: 0 quetiapine [Seroquel] 100 mg tablet 100 mg PO QHS PRN (Reason: agitation) Qty: 90 RF: 3 sertraline 100 mg tablet 150 mg PO DAILY Qty: 135 RF: 3 acetaminophen 500 mg tablet 1,000 mg PO BID Qty: 100 RF: 0 diclofenac sodium 1 % gel 2 g TP QID PRN (Reason: pain) Qty: 150 RF: 2 Discharge Instructions Instructions: Back Pain (ED), Arthritis (ED) Additional Instructions: Alternate ice and heat to the affected area(s) several times daily for 20 minutes at a time. Alternate tylenol and motrin as needed and directed for pain. Your prescription has been sent electronically to your pharmacy. Call the pharmacy to make sure your prescription is ready before pickup. Take the prescription as directed. Take the oxycodone for pain not relieved with Tylenol or Motrin. Follow-up with your primary care doctor in 1 week. Return to the emergency department with any worsening or new concerning symptoms. Discharge Data Discharge Date/Time-TO BE ENTERED AT DEPARTURE: 11/27/20 13:19 Discharge Physician: Kristen Medellin Medical Decision Making 80-year-old female with a history of dementia, hypertension, hyperlipidemia, hypothyroidism and chronic hip and back pain presents for worsening hip and back pain, poor appetite and sore throat since yesterday. Vitals within normal limits. She is afebrile here. She appears comfortable and nontoxic. Patient does not allow inspection of her oropharynx due to lack of cooperation. Attempted to view with tongue depressor but patient will not allow. Part of the oral mucosa which I can inspect appears normal without erythema or exudates. She is denying any sore throat at present. It is possible her sore throat is from dry mouth as she has not been eating or drinking much. Lungs clear. Abdomen soft and nontender. Midline lumbar spine tenderness. Normal range of motion at hip bilaterally with some wincing noted with range of motion at right hip, but unclear if this is her hip or back. No focal deficits. Neurovascularly intact. Review of records note that patient was treated for a UTI last month. Considering patient's age and complaints, will obtain screening labs, urinalysis, CT abdomen and pelvis with lumbar spine recons. Labs and imaging reviewed and unremarkable for acute findings. Normal white blood cell count and hemoglobin. Electrolytes within normal limits. Urinalysis negative for infection. CT noted possible motion degradation versus pyelonephritis but as urinalysis negative, presentation not consistent with py elonephritis. She has no complaint of vaginal bleeding. Patient was able to eat and drink and ambulate with some assistance without pain. Results discussed results discussed with patient and . feels comfortable with discharge home. A prescription for oxycodone sent electronically to her pharmacy. Advised to follow up with the primary care doctor for re-evaluation. Usual and customary return precautions given prior to discharge. Medical Records Medical records reviewed: Yes I reviewed the patient's medical records. Imaging Data Radiologic Study: Radiologist's impression: CT Abdomen And Pelvis With Contrast Exam date and time: 11/27/2020 9:27 AM Age: 80 years old Clinical indication: Other: Decreased appetite, fever, recent UTI TECHNIQUE: Imaging protocol: Computed tomography of the abdomen and pelvis with contrast. Radiation optimization: All CT scans at this facility use at least one of these dose optimization techniques: automated exposure control; mA and/or kV adjustment per patient size (includes targeted exams where dose is matched to clinical indication); or iterative reconstruction. Contrast material: OMNIPAQUE 350; Contrast volume: 100 ml; Contrast route: INTRAVENOUS (IV); COMPARISON: CR XR HIP PELVIS ADULT BL 03/19/2019 5:39 PM FINDINGS: Liver: Normal. No mass. Gallbladder and bile ducts: Normal. No calcified stones. No ductal dilation. Pancreas: Normal. No ductal dilation. Spleen: Normal. No splenomegaly. Adrenal glands: Normal. No mass. Kidneys and ureters: There is chronic scarring noted in the left kidney. There is a suspicion of mild hypodense nephrogram in the left renal cortex at the upper pole. There is a 3.3 cm hypodense lesion in the right kidney, likely cyst. Stomach and bowel: Mild stool volume in the colon. No dilated loops. Stomach is unremarkable. Appendix: No evidence of appendicitis. Intraperitoneal space: Unremarkable. No free air. No significant fluid collection. Vasculature: Redemonstration of varicose veins of the left ovary and the retro aortic left renal vein. Lymph nodes: Unremarkable. No enlarged lymph nodes. Urinary bladder: Unremarkable as visualized. Reproductive: There is fluid noted in the vaginal vault and in the cervix. Bones/joints: There is moderate to severe osteoarthritis of the right hip joint. There is moderate osteoarthritis of the left hip joint. Soft tissues: Unremarkable. Other findings: Images are degraded due to motion. IMPRESSION: 1. There is suspicious of hypoenhancing cortical nephrograms in the left renal upper pole. Correlate with any symptoms of pyelonephritis, although the evaluation renal cortex is limited due to motion degradation. 2. Mildly varicose left ovarian vein and retro aortic course of the left renal vein. Correlate for symptoms of pelvic congestion syndrome. 3. There is fluid in the vaginal vault and cervix. Correlate with symptoms of bleeding and might consider an ultrasound for further evaluation. CT Lumbar Spine Without Contrast Exam date and time: 11/27/2020 9:36 AM Age: 80 years old Clinical indication: Low back pain and other: Lwero back pain b/l hip pain TECHNIQUE: Imaging protocol: Computed tomography images of the lumbar spine without contrast. COMPARISON: CR XR LUMBAR SPINE COMPLETE 03/19/2019 5:45 PM FINDINGS: Vertebrae: There is small Schmorl's node at the superior endplate of L4. Mild degenerative loss of disc height at L3-L4 and L4-L5 and T12-L1. Mild grade 1 anterolisthesis of L4 over L5. L1-L2: Mild posterior disc bulge. No severe spinal canal stenosis. No significant neural foraminal narrowing. L2-L3: No significant disc protrusion. No severe spinal canal stenosis. No significant neural foraminal narrowing. L3-L4: There is circumferential disc bulge, ligamentum flavum hypertrophy and facet osteoarthropathy. No severe spinal canal stenosis. Mild bilateral neural foraminal stenosis due to disc encroachment and osteophyte spurring. L4-L5: Mild central canal stenosis due to circumferential disc bulge, grade 1 anterolisthesis, facet osteoarthropathy and ligamentum flavum hypertrophy. Mild bilateral neural foraminal narrowing due to disc encroachment of the over. L5-S1: No significant disc protrusion. No severe spinal canal stenosis. No significant neural foraminal narrowing. Other bones/joints: Visualized bones are demineralized. Lungs: There is bibasilar atelectasis. Kidneys and ureters: There is hypodense lesion in the right kidney, not well characterized on bone windows. Reproductive: There is fluid noted in the vagina and the posterior fornix. There are slight prominence of left ovarian vessels. There are possible postoperative changes due to hysterectomy. There is a retro aortic course of the left renal vein. Soft tissues: Unremarkable. IMPRESSION: 1. No acute fracture or subluxation. 2. Mild lumbar lordosis without critical spinal canal or neural foraminal stenosis. 3. Partially visualized hypodense right renal lesion, not well characterized on this exam and could be a cyst. Correlate with the prior CT exam. 4. Mild left ovarian varicose veins, although nonspecific but could be seen with pelvic congestion syndrome. Lab Data Lab results reviewed: Yes I reviewed the patient's lab results. Labs: 11/27/20 10:45 Tonsil - Left Group A Streptococcus Culture - Pending Laboratory Tests Range/Units 11/27/20 11/27/20 11/27/20 09:40 09:40 10:48 WBC (4.4-10.8) 10^3/uL 5.58 RBC (3.93-5.22) 10^6/uL 3.44 L Hgb (11.2-15.7) g/dL 11.5 Hct (36.0-46.0) % 34.5 L MCV (80-95) fL 100.3 H MCH (27.0-33.0) pg 33.4 H MCHC (32.0-36.0) % 33.3 RDW (11.7-14.6) % 12.5 Plt Count (130-400) 10^3/uL 155 MPV (8.0-11.0) fL 10.6 Immature Gran % 0.2 Neutrophils % 69.6 Lymphocytes % 16.8 Monocytes % 10.4 Eosinophils % 2.3 Basophils % 0.7 Nucleated RBC % % 0 Absolute Neutrophils (1.2-6.7) 10^3/uL 3.88 Absolute Lymphocytes (1.2-3.4) 10^3/uL 0.94 L Absolute Monocytes (0.1-0.8) 10^3/uL 0.58 Absolute Eosinophils (0.0-0.7) 10^3/uL 0.13 Absolute Basophils (0.0-0.2) 10^3/uL 0.04 Sodium (136-145) mmol/L 141 Potassium (3.5-5.1) mmol/L 3.6 Chloride (98-107) mmol/L 107 Carbon Dioxide (21.0-32.0) mmol/L 23.0 Anion Gap (3-11) mmol/L 11.0 BUN (7-18) mg/dL 15 Creatinine (0.55-1.02) mg/dL 1.2 H Estimated GFR/1.73 m2 (mL/min/1.73m2) 43.23 Glucose (74-106) mg/dL 88 Calcium (8.5-10.1) mg/dL 8.6 Total Bilirubin (0.2-1.0) mg/dL 0.4 AST (15-37) U/L 17 ALT (14-59) U/L 15 Alkaline Phosphatase (46-116) U/L 65 Total Protein (6.4-8.2) g/dL 6.6 Albumin (3.4-5.0) g/dL 3.3 L Urine Color (Yellow) Yellow Urine Clarity (Clear) Clear Urine pH (5-8) 7.0 Ur Specific [place] (1.005-1.025) 1.015 Urine Protein (Negative) mg/dL Negative Urine Ketones (Negative) mg/dL Negative Urine Blood (Negative) Negative Urine Nitrite (Negative) Negative Urine Bilirubin (Negative) Negative Urine Urobilinogen (Up TO 0.2) EU/dL 0.2 Ur Leukocyte Esterase (Negative) Negative Urine Glucose (Negative) mg/dL Negative HPI General Mode of arrival: EMS . Date/Time Provider Initiated Documentation: 11/27/20 08:41 . Limitations to Documentation: no limitations . Information obtained by: patient, family and EMS . HPI Narrative: Patient is an 80-year-old female with a history of dementia, hypertension, hyperlipidemia, hypothyroidism and chronic hip and back pain secondary to arthritis who presents for worsening hip and back pain today and decrease appetite and sore throat since yesterday. He states she has not eaten or drank much or taken her pills since yesterday. states that patient had a fall a few days ago but states it was minor and she had no injury from this. He states she has been ambulating with assistance which is her baseline since then. He states she should be using a cane or walker but refuses so she requires assistance on her side when ambulating. states that patient had a fever last night of 100 and EMS noted a low-grade temp of 100 in route for which she was given IV Tylenol. He denies any recent vomiting or diarrhea. He states she has been having normal bowel movements. Related Data Home Medications Medication Instructions Recorded Confirmed food supplemt, lactose-reduced See Rx Instructions PO .COMPLEX 04/22/19 11/27/20 0.04 gram-1 kcal/mL oral liquid #6399 ml levothyroxine 88 mcg capsule 88 mcg PO DAILY #90 cap 04/26/20 11/27/20 polyethylene glycol 3350 17 17 g PO HS PRN g 05/25/20 11/27/20 gram/dose oral powder quetiapine 100 mg tablet 100 mg PO QHS PRN #90 tab 07/05/20 11/27/20 quetiapine 25 mg tablet 25 - 75 mg PO BID #360 tab 10/13/20 11/27/20 acetaminophen 500 mg tablet 1,000 mg PO BID #100 tab 11/05/20 11/27/20 sertraline 100 mg tablet 150 mg PO DAILY #135 tab 11/05/20 11/27/20 diclofenac sodium 1 % topical gel 2 g TP QID PRN #150 g 11/15/20 11/27/20 oxycodone 5 mg PO Q6H PRN #7 tab 11/27/20 Previous Rx's Medication Instructions Recorded food supplemt, lactose-reduced See Rx Instructions PO .COMPLEX 04/22/19 0.04 gram-1 kcal/mL oral liquid #6399 ml levothyroxine 88 mcg capsule 88 mcg PO DAILY #90 cap 04/26/20 quetiapine 100 mg tablet 100 mg PO QHS PRN #90 tab 07/05/20 quetiapine 25 mg tablet 25 - 75 mg PO BID #360 tab 10/13/20 acetaminophen 500 mg tablet 1,000 mg PO BID #100 tab 11/05/20 sertraline 100 mg tablet 150 mg PO DAILY #135 tab 11/05/20 diclofenac sodium 1 % topical gel 2 g TP QID PRN #150 g 11/15/20 oxycodone 5 mg PO Q6H PRN #7 tab 11/27/20 Allergies Allergy/AdvReac Type Severity Reaction Status Date / Time codeine AdvReac sick to Verified 11/27/20 08:53 stomache General LU: 3 Review of Systems All systems reviewed & are unremarkable except as noted in HPI and below Constitutional Constitutional: Reports as per HPI, Denies chills, Reports fever(s) and Reports poor appetite Eyes Eyes: Denies blurry vision ENT Ears, Nose, Mouth, and Throat: Denies dizziness, Denies sore throat and Denies throat swelling Cardiovascular Cardiovascular: Denies chest pain and Denies dyspnea Respiratory Respiratory: Denies cough and Denies dyspnea Gastrointestinal Gastrointestinal: Denies abdominal pain, Denies diarrhea and Denies vomiting Genitourinary Genitourinary: Denies hematuria and Denies dysuria Musculoskeletal Musculoskeletal: Reports back pain and Denies numbness Integumentary/Breasts Skin/Breast: Denies lesions and Denies rash Neurologic Neurologic: Denies dizziness, Denies localized weakness and Denies numbness Allergic/Immunologic Allergic/Immunologic: Denies throat swelling [facility] Medical History Anxiety Arthritis of left hip Arthritis of right hip Atrial fibrillation Bowel dysfunction Dementia Onset 2012 Encounter for medication management Essential hypertension External hemorrhoids (01/18/13) Excision by Dr. Levy Parham 01-18-13--admitted postoperative for pain control. Goiter Greater trochanteric bursitis of left hip Greater trochanteric bursitis of right hip Injection: 05/05/2019 Hyperlipidemia Hyperthyroidism (12/26/12) Hypothyroidism Impacted cerumen of left ear Irritability and anger Memory impairment of gradual onset (12/26/12) Previous MMSE 23/30 & 22/30 Osteopenia Swelling of left ankle joint (11/12/17) Urge incontinence Weakness generalized Weight loss observed on examination (02/20/17) Surgical History Abdominal hysterectomy Anoscopy (01/15/13) DR. PARHAM Status post abdominal hysterectomy Family History Mother , AGE 94 Hip fx Depression Father , 72 Essential hypertension Heart disease Myocardial infarction Bladder cancer Brother Dementia Daughter , 52 Depression Hypertension High cholesterol Daughter Breast cancer Daughter Essential hypertension Depression Hyperlipidemia Daughter Depression Breast cancer High cholesterol Hypertension Paternal Grandfather Heart disease Alzheimer disease Maternal Grandmother Breast cancer Ovarian cancer Paternal Grandmother Uterine cancer Social History Smoking/Tobacco Use Status: Former Tobacco Use Quit Date: 06/04/83 Tobacco: How many years used: 25 Second Hand Exposure: Yes Smoking risk assessment performed?: Yes Alcohol Intake: former Drug use: Never Substance use type: does not use Counseling given: No Counseling provided: none Caregiver/Support person: Yes Household members: spouse Housing: apartment Communication Needs: None Do you need help understanding health information?: Always Pets and animals: Yes Pets and animals: dog(s) Sexually active: No Do you think of yourself as: straight/heterosexual Current gender identity: female What is your relationship status?: How often do you talk on the phone with friends or family?: twice per week How often do you get together with friends or relatives?: three or more times per week Do you belong to any clubs or organized social groups?: no Panel score (0-1 are the most socially isolated patients): 2 What type of physical activity do you participate in: none Carmella/Amish: Jain Special carmella needs: No Seatbelt use: always 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 Surrounding mucosa appears normal without erythema, exudates. Eyes General: appearance normal, both eyes and all related structures Pupils: PERRL EOM: EOM intact bilaterally Neck Neck: normal visual inspection and No submandibular swelling Lymphatic: no lymphadenopathy noted Chest Chest: normal inspection of the chest and no tenderness Resp Effort & Inspection: normal respiratory effort and able to speak in complete sentences Auscultation: clear to auscultation bilaterally Cardio Rate: regular rate Rhythm: regular rhythm GI Inspection: normal to inspection Palpation: soft, not firm, not rigid and nontender Auscultation: normal bowel sounds Back/Spine/Pelvis Cervical Spine: No cervical spinal tenderness Thoracic/Lumbar Spine: thoracic and lumbar spine normal to inspection, No thoracic spinal tenderness and lumbar spinal tenderness Pelvis: no pain with anterior-posterior compression Skin General skin exam: no rashes or lesions noted Neuro General: patient alert, patient awake and patient oriented x3 Cognition: normal cognition Speech: speech normal Motor: muscle tone normal throughout and strength 5/5 throughout Sensory Exam: no sensory deficits noted DTR's: Rt Patellar: 1+, Lt Patellar: 1+, Rt Ankle: 1+ and Lt Ankle: 1+ Plantar Reflexes: Equivocal: bilateral (negative babinski b/l ) Extrem General: normal to inspection, full ROM, capillary refill normal, no calf tenderness bilaterally and no edema Other: B/L DP/PT pulses intact. Psych Appearance: grossly normal Mental Status: mental status grossly normal Speech and Movement: speech and movement normal Affect: normal affect
[2020-11-27 08:44] VITALS: BP 133/83; PULSE 85; RESP 18; TEMP 37.2; O2SAT 99
--- NOTE | 2020-11-27 09:15 | DI.CT_ITS ---
Exam(s) CT ABDOMEN PELVIS W EXAM: CT ABDOMEN PELVIS W CLINICAL HISTORY: decreased appetite, fever, recent uti. TECHNIQUE: Imaging Protocol: Axial computed tomography images with coronal and sagittal reformatted images were created and reviewed CONTRAST MATERIAL: Intravenous: Omnipaque 100cc Oral: None COMPARISON: No exams were available for comparison FINDINGS: VISUALIZED LUNG BASES: Mild increased markings both lung bases. There are no pleural effusions. ABDOMEN: There is motion artifact. There is no ascites. LIVER: There are no focal hepatic lesions evident . GALLBLADDER/BILIARY: No obvious gallbladder pathology. CBD is not dilated. PANCREAS: No evidence of pancreatic mass nor dilatation of the pancreatic duct. SPLEEN: Spleen is not enlarged. No obvious intrasplenic lesions. Splenic and portal veins are paten t. ADRENALS: There are no significant adrenal masses. KIDNEYS:There is cortical thinning of the left kidney over the lateral cortex. This is chronic. The re is a cyst in the lateral cortex of the right kidney which measures 3.4 by 2.3 cm. No hydronephros is nor hydroureter nor obvious abnormality in the nondistended urinary bladder. ABDOMINAL AORTA: Abdominal aorta is not enlarged. LYMPH NODES:There is no retroperitineal nor paraaortic adenopathy. ABDOMINAL WALL: No evidence of significant anterior abdominal wall hernia. GI: There is no evidence of bowel obstruction, free air, nor abscess. PELVIS: Slightly prominent veins in left side of the pelvis which drain into a slightly prominent [place] vein which itself drains into the left renal vein. The left renal vein is noted to be retro aor tic and appears somewhat compressed (but not thrombosed) between the aorta and the vertebral body. T his is probably causing an element of pelvic congestion. GI: No evidence of appendicitis.No evidence of sigmoid diverticulitis. LYMPH NODES: There is no intrapelvic nor inguinal adenopathy. REPRODUCTIVE: Uterus is atrophic or surgically absent. There is fluid in the vagina and cervix. URINARY BLADDER: No calculi nor obvious masses evident OSSEOUS: No significant osseous lesions. Schmorl's node invagination superior endplate L4. Mild degenerative anterolisthesis L4 upon L5. IMPRESSION: 1. Mildly varicose left pelvic veins which drain into a slightly prominent left gonadal vein which it self drains into the left renal vein which itself is retroaortic and compressed (but not thrombosed) between the posterior wall of the aorta and the adjacent vertebral body. There is no evidence of thr ombosis of these veins. 2. Uterus is surgically absent. There is fluid in the vagina and cervix remnant, possibly significan t 3. Right kidney benign cyst. 4. No ascites. No free air. RADIATION DOSE DELIVERED: Total DLP DATA REPOSITORY: All CT scans at this facility are submitted to the National Radiology Data Registry (NRDR) Dose Index Registry (DIR) with the [employer] (ACR). RADIATION OPTIMIZATION: All CT scans at this facility use at least one of these dose optimization te chniques: automated exposure control; mA and/or kV adjustment per patient size (includes targeted exa ms where dose is matched to clinical indication); or iterative reconstruction.
--- NOTE | 2020-11-27 09:22 | DI.CT_ITS ---
Exam(s) CT LUMBAR SPINE RECONS EXAM: CT LUMBAR SPINE RECONS CLINICAL HISTORY: lower back pain, b/l hip pain. TECHNIQUE: Imaging Protocol: Axial computed tomography images with coronal and sagittal reformatted images were created and reviewed COMPARISON: CT CT ABDOMEN PELVIS W from 11/27/[address] ABDOMEN PELVIS W from 11/27/2020 FINDINGS: Bones: There are no acute fractures nor pars defects. There are no lytic osseous lesions evident.Mil d degenerative anterolisthesis of L4 upon L5. Small Schmorl's node invagination superior endplate of L4 evident. At L 2-3 level there is mild-moderate central spinal canal stenosis due to broad annular bulging, anil rt AP dimensions the pedicles and some degenerative change in the facet joints.. Similar findings at L3-4. L4-5 level exhibits mild anterolisthesis of L4 upon L5 due to advanced degenerative changes i n the facet joints. No significant foraminal stenosis at this level, as there is only minimal disc h eight loss this level. L5-S1 level exhibits vacuum phenomenon within both degenerative facet joints. No disc herniation or canal stenosis at this level. Also no significant foraminal stenosis due to the absence of disc height loss. The visualized sacroiliac joints and sacrum appear unremarkable. IMPRESSION: 1. Degenerative changes as described above. No evidence of acute fracture. 2. No prominent-severe central spinal canal stenosis and no significant foraminal stenosis. 3. Mild degenerative anterolisthesis of L4 upon L5 due to facet arthropathy. RADIATION DOSE DELIVERED: Total DLP DATA REPOSITORY: All CT scans at this facility are submitted to the National Radiology Data Registry (NRDR) Dose Index Registry (DIR) with the [employer] (ACR). RADIATION OPTIMIZATION: All CT scans at this facility use at least one of these dose optimization te chniques: automated exposure control; mA and/or kV adjustment per patient size (includes targeted exa ms where dose is matched to clinical indication); or iterative reconstruction.
[2020-11-27 09:43] LABS: Abs Immature Grans 0.01 10^3/uL (0.0-0.06); Absolute Basophil Count 0.04 10^3/uL (0.0-0.2); Absolute Eosinophil Count 0.13 10^3/uL (0.0-0.7); Absolute Lymphocyte Count 0.94 10^3/uL (1.2-3.4); Absolute Monocyte Count 0.58 10^3/uL (0.1-0.8); Absolute Neutrophil Count 3.88 10^3/uL (1.2-6.7); Basophils % 0.7; Eosinophils % 2.3; HCT 34.5 % (36.0-46.0); HGB 11.5 g/dL (11.2-15.7); Immature Grans % 0.2; Lymphocytes % 16.8; MCH 33.4 pg (27.0-33.0); MCHC 33.3 % (32.0-36.0); MCV 100.3 fL (80-95); MPV 10.6 fL (8.0-11.0); Monocytes % 10.4; Neutrophils % 69.6; Nucleated RBC 0 %; Platelet Count 155 10^3/uL (130-400); RBC 3.44 10^6/uL (3.93-5.22); RDW 12.5 % (11.7-14.6); RDW-SD 46.2 fL; WBC 5.58 10^3/uL (4.4-10.8)
[2020-11-27 09:56] LABS: ALT 15 U/L (14-59); AST 17 U/L (15-37); Albumin 3.3 g/dL (3.4-5.0); Alkaline Phosphatase 65 U/L (46-116); BUN 15 mg/dL (7-18); Bilirubin, Total 0.4 mg/dL (0.2-1.0); CREATININE 1.2 mg/dL (0.55-1.02); Calcium 8.6 mg/dL (8.5-10.1); Chloride 107 mmol/L (98-107); Estimated GFR 43.23 (mL/min/1.73m2); Glucose 88 mg/dL (74-106); Potassium 3.6 mmol/L (3.5-5.1); Sodium 141 mmol/L (136-145); Total Protein 6.6 g/dL (6.4-8.2)
[2020-11-27] MEDS: Normal Saline 500 ML IV (10:00)
[2020-11-27] MEDS: Normal Saline Flush 10 ML SYR IVP ×2 (10:00→10:43)
[2020-11-27] MEDS: Omnipaque 350 MG/ML 100 ML BTL IJ (10:42)
[2020-11-27] MEDS: Normal Saline - Diluent 50 ML VIAL IV (10:42)
[2020-11-27 11:05] LABS: Bilirubin Negative (Negative); Blood Negative (Negative); Clarity Clear (Clear); Glucose Negative (Negative); Ketones Negative (Negative); Leukocyte Esterase Negative (Negative); Nitrite Negative (Negative); Specific Gravity 1.015 (1.005-1.025); Urobilinogen 0.2 EU/dL (Up TO 0.2)
--- NOTE | 2020-11-27 11:19 | DI.VRAD_ITS ---
PROCEDURE INFORMATION: Exam: CT Lumbar Spine Without Contrast Exam date and time: 11/27/2020 9:36 AM Age: 80 years old Clinical indication: Low back pain and other: Lwero back pain b/l hip pain TECHNIQUE: Imaging protocol: Computed tomography images of the lumbar spine without contrast. COMPARISON: CR XR LUMBAR SPINE COMPLETE 03/19/2019 5:45 PM FINDINGS: Vertebrae: There is small Schmorl's node at the superior endplate of L4. Mild degenerative loss of disc height at L3-L4 and L4-L5 and T12-L1. Mild grade 1 anterolisthesis of L4 over L5. L1-L2: Mild posterior disc bulge. No severe spinal canal stenosis. No significant neural foraminal narrowing. L2-L3: No significant disc protrusion. No severe spinal canal stenosis. No significant neural foraminal narrowing. L3-L4: There is circumferential disc bulge, ligamentum flavum hypertrophy and facet osteoarthropathy. No severe spinal canal stenosis. Mild bilateral neural foraminal stenosis due to disc encroachment and osteophyte spurring. L4-L5: Mild central canal stenosis due to circumferential disc bulge, grade 1 anterolisthesis, facet osteoarthropathy and ligamentum flavum hypertrophy. Mild bilateral neural foraminal narrowing due to disc encroachment of the over. L5-S1: No significant disc protrusion. No severe spinal canal stenosis. No significant neural foraminal narrowing. Other bones/joints: Visualized bones are demineralized. Lungs: There is bibasilar atelectasis. Kidneys and ureters: There is hypodense lesion in the right kidney, not well characterized on bone windows. Reproductive: There is fluid noted in the vagina and the posterior fornix. There are slight prominence of left ovarian vessels. There are possible postoperative changes due to hysterectomy. There is a retro aortic course of the left renal vein. Soft tissues: Unremarkable. IMPRESSION: 1. No acute fracture or subluxation. 2. Mild lumbar lordosis without critical spinal canal or neural foraminal stenosis. 3. Partially visualized hypodense right renal lesion, not well characterized on this exam and could be a cyst. Correlate with the prior CT exam. 4. Mild left ovarian varicose veins, although nonspecific but could be seen with pelvic congestion syndrome. Dictated and Authenticated by: Dileep Greco MD. Ordering:MARTÍN Peterson MD
[2020-11-27] MEDS: oxyCODONE 5 MG TAB PO (11:27)
--- NOTE | 2020-11-27 11:31 | DI.VRAD_ITS ---
PROCEDURE INFORMATION: Exam: CT Abdomen And Pelvis With Contrast Exam date and time: 11/27/2020 9:27 AM Age: 80 years old Clinical indication: Other: Decreased appetite, fever, recent UTI TECHNIQUE: Imaging protocol: Computed tomography of the abdomen and pelvis with contrast. Radiation optimization: All CT scans at this facility use at least one of these dose optimization techniques: automated exposure control; mA and/or kV adjustment per patient size (includes targeted exams where dose is matched to clinical indication); or iterative reconstruction. Contrast material: OMNIPAQUE 350; Contrast volume: 100 ml; Contrast route: INTRAVENOUS (IV); COMPARISON: CR XR HIP PELVIS ADULT BL 03/19/2019 5:39 PM FINDINGS: Liver: Normal. No mass. Gallbladder and bile ducts: Normal. No calcified stones. No ductal dilation. Pancreas: Normal. No ductal dilation. Spleen: Normal. No splenomegaly. Adrenal glands: Normal. No mass. Kidneys and ureters: There is chronic scarring noted in the left kidney. There is a suspicion of mild hypodense nephrogram in the left renal cortex at the upper pole. There is a 3.3 cm hypodense lesion in the right kidney, likely cyst. Stomach and bowel: Mild stool volume in the colon. No dilated loops. Stomach is unremarkable. Appendix: No evidence of appendicitis. Intraperitoneal space: Unremarkable. No free air. No significant fluid collection. Vasculature: Redemonstration of varicose veins of the left ovary and the retro aortic left renal vein. Lymph nodes: Unremarkable. No enlarged lymph nodes. Urinary bladder: Unremarkable as visualized. Reproductive: There is fluid noted in the vaginal vault and in the cervix. Bones/joints: There is moderate to severe osteoarthritis of the right hip joint. There is moderate osteoarthritis of the left hip joint. Soft tissues: Unremarkable. Other findings: Images are degraded due to motion. IMPRESSION: 1. There is suspicious of hypoenhancing cortical nephrograms in the left renal upper pole. Correlate with any symptoms of pyelonephritis, although the evaluation renal cortex is limited due to motion degradation. 2. Mildly varicose left ovarian vein and retro aortic course of the left renal vein. Correlate for symptoms of pelvic congestion syndrome. 3. There is fluid in the vaginal vault and cervix. Correlate with symptoms of bleeding and might consider an ultrasound for further evaluation. Dictated and Authenticated by: Dileep Greco MD. Ordering:MARTÍN Peterson MD
[2020-11-27 12:58] VITALS: BP 112/93; PULSE 78; RESP 18; TEMP 36.8; O2SAT 95
== END 2020-11-27 13:19 | disposition home or self-care (01) ==
PROVIDERS: Emergency Provider Physician Assistant
DX: M54.5 Low back pain (principal); M25.552 Pain in left hip; M25.551 Pain in right hip
CPT/HCPCS: 36415; 51701; 80053; 87880; 96360; 99285; 74177; 81003; 85025; 87081; 99283; J3490

== ENCOUNTER 2020-11-27 21:30 | Emergency (ER) | payer MEDICARE, OTHER, MEDICAID, SELFPAY ==
--- NOTE | 2020-11-27 21:45 | DI.CT_ITS ---
Exam(s) CT HEAD CERVICAL SPINE WO EXAM: CT HEAD CERVICAL SPINE WO CLINICAL HISTORY: posterior head and neck tenderness. TECHNIQUE: Imaging Protocol: Axial computed tomography images with coronal and sagittal reformatted images were created and reviewed COMPARISON: CT CT HEAD FACIAL WO from 04/06/2020 FINDINGS: BRAIN: There are no skull fractures nor fluid in the visualized paranasal sinuses. There is no evidence of intracranial hemorrhage, mass effect, or shift of midline structures. There are no extra-axial fluid collections. The ventricles are not enlarged or shifted and there is no blo od within the ventricular system nor within the basal cisterns. Symmetrical atrophy consistent with this patient's advanced age. CERVICAL SPINE: Images somewhat degraded by motion artifact. There is no evidence of obvious fracture. No significant prevertebral swelling. There is multilevel chronic degenerative disc disease in the lower cervical spine. No prominent listhesis. There is mu ltilevel facet arthropathy. No facet malalignment. . IMPRESSION: No acute intracranial findings on this noninfused CT scan of the brain. No evidence of cervical spine fracture, malalignment, nor acute compromise of the cervical spinal can al. Multilevel degenerative changes in the cervical spine evident. RADIATION DOSE DELIVERED: 1,373.75mGy.cm Total DLP DATA REPOSITORY: All CT scans at this facility are submitted to the National Radiology Data Registry (NRDR) Dose Index Registry (DIR) with the [employer] (ACR). RADIATION OPTIMIZATION: All CT scans at this facility use at least one of these dose optimization te chniques: automated exposure control; mA and/or kV adjustment per patient size (includes targeted exa ms where dose is matched to clinical indication); or iterative reconstruction.
[2020-11-27 21:48] VITALS: BP 139/85; PULSE 88; RESP 16; TEMP 36.8; O2SAT 97
--- NOTE | 2020-11-27 21:58 | W.ED.GENAD ---
Discharge Plan Disposition Patient Disposition: HOME Condition: Stable Discharge Details Clinical Impression: Head pain, Ear pain Primary Care Provider: Stefanie Jack ED Provider: Richie Shetty Home Meds and New Rx's Prescriptions: New diazepam [Valium] 5 mg tablet 5 mg PO Q8H PRN (Reason: muscle spasm) Qty: 14 RF: 0 Continued quetiapine [Seroquel] 25 mg tablet 25 - 75 mg PO BID Qty: 360 RF: 3 Boost 0.04 gram- 1 kcal/mL liquid See Rx Instructions PO .COMPLEX Qty: 6399 RF: 4 levothyroxine 88 mcg capsule 88 mcg PO DAILY Qty: 90 RF: 11 polyethylene glycol 3350 [Miralax] 17 gram/dose powder 17 g PO HS PRNRF: 0 quetiapine [Seroquel] 100 mg tablet 100 mg PO QHS PRN (Reason: agitation) Qty: 90 RF: 3 sertraline 100 mg tablet 150 mg PO DAILY Qty: 135 RF: 3 acetaminophen 500 mg tablet 1,000 mg PO BID Qty: 100 RF: 0 diclofenac sodium 1 % gel 2 g TP QID PRN (Reason: pain) Qty: 150 RF: 2 Discontinued oxycodone 5 mg tablet 5 mg PO Q6H PRN (Reason: pain) Qty: 7 RF: 0 Discharge Instructions Instructions: Earache (ED), General Headache (ED) Additional Instructions: she can have 1000mg tylenol and 600mg ibuprofen every 6 hours for pain as needed if she takes the valium try to have her lay down after as she will likely be drowsy. follow up with her primary care provider within 1 week if you feel she is more ill, has persistent vomit or fevers return to the emergency department Medical Decision Making 80 yo female with dementia who was seen earlier today for back pain and discharged comes in with ems after complaining tonight of posterior head pain. no fevers, vomit, and is at her baseline mental status per daughter who is with her. No known falls. She doesn't answer any question correctly and will only say 1-2 words at a time which is her baseline. On exam she intermittently will wince and grab the posterior head. She has no visible or palpable deformities of the head or neck. PERRL. She is tender with even light palpation to the posterior occiput, as well as midline upper c spinen. Normal tm's and external auditory canals and external mastoids. Her pain seems very superficial and suspect occipital neuralgia but will obtain ct to evaluate for possible fracture. 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 On reassessment appears to be in less pain but then intermittently grabs the left posterior head and also left ear. She has normal left tm and external auditory canal appears normal but is tender with exam so will cover for possible otitis externa. Given the intermittent nature of the pain could also be spasms. Will have her stop the oxycodone and try valium. Will d/c and have her f/u with her pcp, return precautions given Differential Diagnosis Differential Diagnosis: muscle spasm, fracture, occipital neuralgia Imaging Data Radiologic Study: Attestation: I personally reviewed and interpreted this imaging study as follows: Imaging: CT Scan Radiologist's impression: no acute findings HPI General Mode of arrival: EMS. Date/Time Provider Initiated Documentation: 11/27/20 21:33. Limitations to Documentation: altered mental status (dementia). Information obtained by: family. History of Present Illness 80 year old F presents to the emergency department with the chief complaint of posterior neck and head pain, described as moderate, Patient started experiencing this unknown and it has been intermittent. No relieving factors improve symptom(s), No exacerbating factors reported . Patient notes denies fever/chills and nausea/vomiting. Related Data Home Medications Medication Instructions Recorded Confirmed food supplemt, lactose-reduced See Rx Instructions PO .COMPLEX 04/22/19 11/27/20 0.04 gram-1 kcal/mL oral liquid #6399 ml levothyroxine 88 mcg capsule 88 mcg PO DAILY #90 cap 04/26/20 11/27/20 polyethylene glycol 3350 17 17 g PO HS PRN g 05/25/20 11/27/20 gram/dose oral powder quetiapine 100 mg tablet 100 mg PO QHS PRN #90 tab 07/05/20 11/27/20 quetiapine 25 mg tablet 25 - 75 mg PO BID #360 tab 10/13/20 11/27/20 acetaminophen 500 mg tablet 1,000 mg PO BID #100 tab 11/05/20 11/27/20 sertraline 100 mg tablet 150 mg PO DAILY #135 tab 11/05/20 11/27/20 diclofenac sodium 1 % topical gel 2 g TP QID PRN #150 g 11/15/20 11/27/20 diazepam [Valium] 5 mg PO Q8H PRN #14 tab 11/27/20 Previous Rx's Medication Instructions Recorded food supplemt, lactose-reduced See Rx Instructions PO .COMPLEX 04/22/19 0.04 gram-1 kcal/mL oral liquid #6399 ml levothyroxine 88 mcg capsule 88 mcg PO DAILY #90 cap 04/26/20 quetiapine 100 mg tablet 100 mg PO QHS PRN #90 tab 07/05/20 quetiapine 25 mg tablet 25 - 75 mg PO BID #360 tab 10/13/20 acetaminophen 500 mg tablet 1,000 mg PO BID #100 tab 11/05/20 sertraline 100 mg tablet 150 mg PO DAILY #135 tab 11/05/20 diclofenac sodium 1 % topical gel 2 g TP QID PRN #150 g 11/15/20 diazepam [Valium] 5 mg PO Q8H PRN #14 tab 11/27/20 Allergies Allergy/AdvReac Type Severity Reaction Status Date / Time codeine AdvReac sick to Verified 11/27/20 08:53 stomache General Stated Complaint: Headache LU: 3 Review of Systems Unobtainable due to mental status [facility] Medical History Anxiety Arthritis of left hip Arthritis of right hip Atrial fibrillation Bowel dysfunction Dementia Onset 2012 Encounter for medication management Essential hypertension External hemorrhoids (01/18/13) Excision by Dr. Levy Parham 01-18-13--admitted postoperative for pain control. Goiter Greater trochanteric bursitis of left hip Greater trochanteric bursitis of right hip Injection: 05/05/2019 Hyperlipidemia Hyperthyroidism (12/26/12) Hypothyroidism Impacted cerumen of left ear Irritability and anger Memory impairment of gradual onset (12/26/12) Previous MMSE 23/30 & 22/30 Osteopenia Swelling of left ankle joint (11/12/17) Urge incontinence Weakness generalized Weight loss observed on examination (02/20/17) Surgical History Abdominal hysterectomy Anoscopy (01/15/13) DR. PARHAM Status post abdominal hysterectomy Family History Mother , AGE 94 Hip fx Depression Father , 72 Essential hypertension Heart disease Myocardial infarction Bladder cancer Brother Dementia Daughter , 52 Depression Hypertension High cholesterol Daughter Breast cancer Daughter Essential hypertension Depression Hyperlipidemia Daughter Depression Breast cancer High cholesterol Hypertension Paternal Grandfather Heart disease Alzheimer disease Maternal Grandmother Breast cancer Ovarian cancer Paternal Grandmother Uterine cancer Social History Smoking/Tobacco Use Status: Former Tobacco Use Quit Date: 06/04/83 Tobacco: How many years used: 25 Second Hand Exposure: Yes Smoking risk assessment performed?: Yes Alcohol Intake: former Drug use: Never Substance use type: does not use Counseling given: No Counseling provided: none Caregiver/Support person: Yes Household members: spouse Housing: apartment Communication Needs: None Do you need help understanding health information?: Always Pets and animals: Yes Pets and animals: dog(s) Sexually active: No Do you think of yourself as: straight/heterosexual Current gender identity: female What is your relationship status?: How often do you talk on the phone with friends or family?: twice per week How often do you get together with friends or relatives?: three or more times per week Do you belong to any clubs or organized social groups?: no Panel score (0-1 are the most socially isolated patients): 2 What type of physical activity do you participate in: none Carmella/Muslim: Oriental Orthodox Special carmella needs: No Seatbelt use: always Drive intox or ride w/intox 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 van 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: No Do you feel safe at home: Yes Do you feel safe in your relationship?: Yes Exam Const General: no acute distress Orientation: alert HENMT Head: normal to inspection Ears: external ears normal General nose exam: external nose normal Mouth: moist mucous membranes Eyes General: appearance normal, both eyes and all related structures Neck Neck: normal visual inspection Resp Effort & Inspection: normal respiratory effort and able to speak in complete sentences Cardio Rate: regular rate Skin General skin exam: no rashes or lesions noted Neuro General: patient alert Extrem General: normal to inspection Course Vital Signs Vital signs: Vital Signs Temperature 36.8 C 11/27/20 21:48 Pulse 88 11/27/20 21:48 Respiratory Rate 16 11/27/20 21:48 Blood Pressure 139/85 11/27/20 21:48 Pulse Oximetry 97 11/27/20 21:48 Temperature 36.8 C 11/27/20 21:48 Temperature Source Temporal Artery Scan 11/27/20 21:48 Pulse 88 11/27/20 21:48 Respiratory Rate 16 11/27/20 21:48 Respiratory Effort Non-Labored 11/27/20 21:51 Blood Pressure 139/85 11/27/20 21:48 Blood Pressure Position Supine 11/27/20 21:48 Pulse Oximetry 97 11/27/20 21:48 Oxygen Delivery Method Room Air 11/27/20 21:48 Oxygen Flow Rate 0 11/27/20 21:48 Pain Level 4 11/27/20 21:53
[2020-11-27] MEDS: Ketorolac 15 MG/ML VIAL IM (22:46)
--- NOTE | 2020-11-27 22:51 | DI.VRAD_ITS ---
PROCEDURE INFORMATION: Exam: CT Head Without Contrast Exam date and time: 11/27/2020 9:58 PM Age: 80 years old Clinical indication: Other: Posterior head and neck tenderness; Neck pain TECHNIQUE: Imaging protocol: Computed tomography of the head without contrast. COMPARISON: CT HEAD FACIAL WO 04/06/2020 3:33 PM FINDINGS: Brain: There is severe diffuse heterogeneity of the white matter attenuation, consistent with chronic white matter microangiopathic ischemic changes. There is severe diffuse cerebral atrophy present. There is no evidence of intracranial hemorrhage. There is no evidence of acute intracranial injury or other pathologic process. There is no evidence of an acute ischemic event. Cerebral ventricles: The ventricular system demonstrates moderate to severe diffuse compensatory enlargement. Paranasal sinuses: There is no evidence of fluid levels, mucoperiosteal thickening, or opacification to suggest acute or chronic sinusitis. Mastoid air cells: The mastoid aircells are normal. Orbital cavity: There is no evidence of retro-bulbar hemorrhage. There is no evidence of globe or lens injury. Vasculature: Vascular calcifications seen consistent with chronic atherosclerotic cerebrovascular disease. Bones/joints: The orbits are normal without evidence of fracture. The bony cranium shows no evidence of injury or other acute pathologic processes. Soft tissues: Small left frontal scalp hematoma present, image 37 axial series 3. IMPRESSION: 1. No evidence of an acute intracranial abnormality. 2. There are severe age-related atrophy and chronic white matter ischemic changes, with compensatory ventricular dilation. 3. Small left frontal scalp hematoma present, image 37 axial series 3. PROCEDURE INFORMATION: Exam: CT Cervical Spine Without Contrast Exam date and time: 11/27/2020 9:58 PM Age: 80 years old Clinical indication: Other: Posterior head and neck tenderness; Neck pain TECHNIQUE: Imaging protocol: Computed tomography images of the cervical spine without contrast. COMPARISON: CT HEAD FACIAL WO 04/06/2020 3:33 PM FINDINGS: Bones/joints: There is no evidence of acute vertebral body element or posterior vertebral element fracture. The anterior posterior borders of the vertebral bodies are in good alignment. No evidence of acute subluxation. No evidence of acute compression fractures. The visualized portions of the skull base and brain are unremarkable. Discs/Spinal canal/Neural foramina: There are moderate to severe degenerative changes of the cervical spine extending from C5-C6 through C7-T1. [id number] neurforaminal narrowing secondary to degenerative changes present. [id number]-[id number] narrowing of the central spinal canal secondary to degenerative changes. There is no evidence of acute disc injury. The spinal canal and cord are otherwise normal. Lymph nodes: There is no evidence of lymphadenopathy. Lungs: The visualized portions of the lung apices are unremarkable. Soft tissues: The prevertebal, paravertebral, pharyngeal, hypopharyngeal, and laryngeal soft tissue structures are unremarkable. IMPRESSION: 1. There is no evidence of acute vertebral body element or posterior vertebral element fracture. 2. The anterior posterior borders of the vertebral bodies are in good alignment. No evidence of acute subluxation. 3. There are moderate to severe degenerative changes of the cervical spine extending from C5-C6 through C7-T1. 4. There is no evidence of acute disc injury. Dictated and Authenticated by: Álvaro Pathak MD. Ordering:BAYRON Quiroz MD
[2020-11-27] MEDS: diazePAM 5 MG TAB PO (23:22)
[2020-11-27] MEDS: Ciprofloxacin/Dexameth. 7.5 ML BTL AD (23:22)
[2020-11-27 23:40] VITALS: BP 139/85; PULSE 88; RESP 16; TEMP 36.8; O2SAT 97
== END 2020-11-27 23:40 | disposition home or self-care (01) ==
PROVIDERS: Emergency Provider Emergency Medicine
DX: H66.92 Otitis media, unspecified, left ear (principal); R51.9 Headache, unspecified; M54.5 Low back pain; M25.552 Pain in left hip; M25.551 Pain in right hip
CPT/HCPCS: 36415; 51701; 80053; 87880; 96360; 96372; 99284; 99285; 70450; 72125; 74177; 81003; 85025; 87081; 99283; J1885; J3490

== ENCOUNTER 2020-11-28 19:42 | Observation (INO) | payer MEDICARE, OTHER, MEDICAID, SELFPAY ==
[2020-11-28 19:47] VITALS: BP 150/97; PULSE 92; RESP 16; TEMP 36.6; O2SAT 96
--- NOTE | 2020-11-28 20:19 | ED.GENADUL_ITS ---
Discharge Plan Disposition Patient Disposition: [facility] INPATIENT Condition: Stable Discharge Details Clinical Impression: Dementia, Comfort measures only status, Jaw pain Primary Care Provider: Stefanie Jack ED Provider: Kristen Medellin Home Meds and New Rx's Prescriptions: No Action quetiapine [Seroquel] 25 mg tablet 25 - 75 mg PO BID Qty: 360 RF: 3 Boost 0.04 gram- 1 kcal/mL liquid See Rx Instructions PO .COMPLEX Qty: 6399 RF: 4 levothyroxine 88 mcg capsule 88 mcg PO DAILY Qty: 90 RF: 11 polyethylene glycol 3350 [Miralax] 17 gram/dose powder 17 g PO HS PRNRF: 0 quetiapine [Seroquel] 100 mg tablet 100 mg PO QHS PRN (Reason: agitation) Qty: 90 RF: 3 sertraline 100 mg tablet 150 mg PO DAILY Qty: 135 RF: 3 acetaminophen 500 mg tablet 1,000 mg PO BID Qty: 100 RF: 0 diclofenac sodium 1 % gel 2 g TP QID PRN (Reason: pain) Qty: 150 RF: 2 diazepam [Valium] 5 mg tablet 5 mg PO Q8H PRN (Reason: muscle spasm) Qty: 14 RF: 0 Medical Decision Making <Richie Shetty MD - Last Filed: 11/29/20 05:13> 80 yo female with hx of severe dementia who is unable to tell me her name, where she is or year/time which is her baseline and will only say 1-2 words at a time and normally doesn't answer with appropriate answers comes in with daughter with request she be admitted for palliative consult for her end stage dementia and also continued right sided head pain. She was seen by me for similar pain yesterday and has no findings on head or c spine ct. She had normal exam at that time other that being tender to palpation tot he right posterior ear and tender with otoscope eval though was normal on appearance. HAs had no relief with oxycodone, valium. Continues to have pain and seems to be in the right tmj. Has no intraoral swelling or legsions, no submandibular swelling and no palpable or visible deformities. Her pain could be due to tmj disorder given location. I discussed further imaging including possible cta or ct neck but at this time daughter who makes decisions for her just wants her to be comfortable. According to up to date nsaids and cyclobenzaprine are recommended first line agents, will try this and reassess. She has no fevers and pain is only at the tmj area so doubt entities such as meningitis pt given toradol and still restless in the bed moving constantly, initially wouldn't swallow flexeril but then was able to will reassess. We unfortunately do not have any beds, may have to stay in the ED until palliative consult can take place pt still restless despite flexeril and seroquel constantly moving around in bed. It is hard to determine if she is in pain or if she is restless and delirious from not sleeping for 3 days. Continued wish is comfort per family, will hold on labs and imaging. Will try low dose morphine prior to morphine being given she fell asleep so was not given. We have no beds here unfortunately and is here for palliative consult and possible placement so will remain in the ED for care management and possible palliative consult in the ED if no beds become available here. pt has been sleeping most of the shift, daughter would still prefer patient stay here for palliative consult rather than go home and have consult. Differential Diagnosis Differential Diagnosis: dementia, otitis media, tmj disorder dental infection Medical Records Medical records reviewed: Yes I reviewed the patient's medical records. <Kristen Medellin DO - Last Filed: 11/29/20 12:55> 0730 --please see Dr. Shetty's note for initial presentation, exam and plan Case endorsed to follow-up with care management regarding palliative care consult. Nursing noted that patient unable to take oral Tylenol. A dose of IV Tylenol ordered without relief. A dose of IV morphine ordered and patient is now resting comfortably Discussed with daughter at the bedside and she is thinking she would like to pursue home hospice but would like to start with a palliative care consult. Discussed with care management who will discuss with palliative care. 1215 --discussed with care management who had not yet heard back from palliative care. Plan will be to admit patient upstairs while awaiting palliative care consult with likely plan for hospice. 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 Case discussed with hospitalist accepts for admission. Shortly after speaking with hospitalist, Dr. Munguia called the ED stating she will see patient while in the hospital. HPI <Richie Shetty MD - Last Filed: 11/29/20 05:13> General Mode of arrival: EMS . Date/Time Provider Initiated Documentation: 11/28/20 19:52 . Information obtained by: family . History of Present Illness 80 year old F presents to the emergency department with the chief complaint of right head pain, described as moderate, Patient started experiencing this day(s) (2) and it has been constant. No relieving factors improve symptom(s), No exacerbating factors reported . Related Data Home Medications Medication Instructions Recorded Confirmed food supplemt, lactose-reduced See Rx Instructions PO .COMPLEX 04/22/19 11/28/20 0.04 gram-1 kcal/mL oral liquid #6399 ml levothyroxine 88 mcg capsule 88 mcg PO DAILY #90 cap 04/26/20 11/28/20 polyethylene glycol 3350 17 17 g PO HS PRN g 05/25/20 11/28/20 gram/dose oral powder quetiapine 100 mg tablet 100 mg PO QHS PRN #90 tab 07/05/20 11/28/20 quetiapine 25 mg tablet 25 - 75 mg PO BID #360 tab 10/13/20 11/28/20 acetaminophen 500 mg tablet 1,000 mg PO BID #100 tab 11/05/20 11/28/20 sertraline 100 mg tablet 150 mg PO DAILY #135 tab 11/05/20 11/28/20 diclofenac sodium 1 % topical gel 2 g TP QID PRN #150 g 11/15/20 11/28/20 diazepam [Valium] 5 mg PO Q8H PRN #14 tab 11/27/20 11/28/20 Previous Rx's Medication Instructions Recorded food supplemt, lactose-reduced See Rx Instructions PO .COMPLEX 04/22/19 0.04 gram-1 kcal/mL oral liquid #6399 ml levothyroxine 88 mcg capsule 88 mcg PO DAILY #90 cap 04/26/20 quetiapine 100 mg tablet 100 mg PO QHS PRN #90 tab 07/05/20 quetiapine 25 mg tablet 25 - 75 mg PO BID #360 tab 10/13/20 acetaminophen 500 mg tablet 1,000 mg PO BID #100 tab 11/05/20 sertraline 100 mg tablet 150 mg PO DAILY #135 tab 11/05/20 diclofenac sodium 1 % topical gel 2 g TP QID PRN #150 g 11/15/20 diazepam [Valium] 5 mg PO Q8H PRN #14 tab 11/27/20 Allergies Allergy/AdvReac Type Severity Reaction Status Date / Time codeine AdvReac sick to Verified 11/28/20 19:53 stomache General Stated Complaint: GenMedical LU: 3 Review of Systems <Richie Shetty MD - Last Filed: 11/29/20 05:13> Unobtainable due to mental status PFS <Richie Shetty MD - Last Filed: 11/29/20 05:13> Medical History Anxiety Arthritis of left hip Arthritis of right hip Atrial fibrillation Bowel dysfunction Dementia Onset 2012 Encounter for medication management Essential hypertension External hemorrhoids (01/18/13) Excision by Dr. Levy Epperson 01-18-13--admitted postoperative for pain control. Goiter Greater trochanteric bursitis of left hip Greater trochanteric bursitis of right hip Injection: 05/05/2019 Hyperlipidemia Hyperthyroidism (12/26/12) Hypothyroidism Impacted cerumen of left ear Irritability and anger Memory impairment of gradual onset (12/26/12) Previous MMSE 23/30 & 22/30 Osteopenia Swelling of left ankle joint (11/12/17) Urge incontinence Weakness generalized Weight loss observed on examination (02/20/17) Surgical History Abdominal hysterectomy Anoscopy (01/15/13) DR. EPPERSON Status post abdominal hysterectomy Family History Mother , AGE 94 Hip fx Depression Father , 72 Essential hypertension Heart disease Myocardial infarction Bladder cancer Brother Dementia Daughter , 52 Depression Hypertension High cholesterol Daughter Breast cancer Daughter Essential hypertension Depression Hyperlipidemia Daughter Depression Breast cancer High cholesterol Hypertension Paternal Grandfather Heart disease Alzheimer disease Maternal Grandmother Breast cancer Ovarian cancer Paternal Grandmother Uterine cancer Social History Smoking/Tobacco Use Status: Former Tobacco Use Quit Date: 06/04/83 Tobacco: How many years used: 25 Second Hand Exposure: Yes Smoking risk assessment performed?: Yes Alcohol Intake: former Drug use: Never Substance use type: does not use Counseling given: No Counseling provided: none Caregiver/Support person: Yes Household members: spouse Housing: apartment Communication Needs: None Do you need help understanding health information?: Always Pets and animals: Yes Pets and animals: dog(s) Sexually active: No Do you think of yourself as: straight/heterosexual Current gender identity: female What is your relationship status?: How often do you talk on the phone with friends or family?: twice per week How often do you get together with friends or relatives?: three or more times per week Do you belong to any clubs or organized social groups?: no Panel score (0-1 are the most socially isolated patients): 2 What type of physical activity do you participate in: none Carmella/Judaism: Jehovah'S Witness Special carmella needs: No Seatbelt use: always Drive intox or ride w/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 Do you feel safe at home: Yes Do you feel safe in your relationship?: Yes Exam <Richie Shetty MD - Last Filed: 11/29/20 05:13> Const General: no acute distress Orientation: alert HENFL Head: normal to inspection Ears: external ears normal General nose exam: external nose normal Mouth: moist mucous membranes Eyes General: appearance normal, both eyes and all related structures Neck Neck: normal visual inspection Resp Effort & Inspection: normal respiratory effort Cardio Rate: regular rate Skin General skin exam: no rashes or lesions noted Neuro General: patient alert Extrem General: normal to inspection Course <Richie Shetty MD - Last Filed: 11/29/20 05:13> Vital Signs Vital signs: Vital Signs Temperature 36.6 C 11/28/20 19:47 Pulse 92 H 11/28/20 19:47 Respiratory Rate 16 11/28/20 19:47 Blood Pressure 150/97 H 11/28/20 19:47 Pulse Oximetry 96 11/28/20 19:47 Temperature 36.6 C 11/28/20 19:47 Temperature Source Temporal Artery Scan 11/28/20 19:47 Pulse 92 H 11/28/20 19:47 Respiratory Rate 16 11/28/20 19:47 Respiratory Effort Non-Labored 11/28/20 19:51 Blood Pressure 150/97 H 11/28/20 19:47 Blood Pressure Position Supine 11/28/20 19:47 Pulse Oximetry 96 11/28/20 19:47 Oxygen Delivery Method Room Air 11/28/20 19:47 Oxygen Flow Rate 0 11/28/20 19:47 Pain Level 4 11/28/20 19:47 Sign Out <Richie Shetty MD - Last Filed: 11/29/20 05:13> Sign Out Data: Sign Out Comment: worsening dementia, family would like palliative consult and possible hospice if qualifies. Has been restless, not sleeping for 3 days and having pain near right tmj. Finally fell asleep after taking 100mg oral seroquel Last updated by Richie Shetty MD at 11/29/20 00:00
[2020-11-28] MEDS: Cyclobenzaprine 10 MG TAB PO (20:30)
[2020-11-28] MEDS: Ketorolac 15 MG/ML VIAL IM (20:51)
[2020-11-28] MEDS: QUEtiapine 100 MG TAB PO (22:35)
[2020-11-29] MEDS: Ketorolac 15 MG/ML VIAL IVP (07:24)
[2020-11-29] MEDS: ACETAMINOPHEN 1,000 MG/100 ML BTL 400 MG IVPB (07:42)
[2020-11-29 12:49] LABS: Source Nasal/Nares
[2020-11-29 13:09] VITALS: BP 144/76; PULSE 74; RESP 18; TEMP 36.1; O2SAT 99
[2020-11-29 13:46] LABS: COVID-19 PCR Negative (Negative)
--- NOTE | 2020-11-29 14:40 | W.PM.HP.N ---
Date of service: 11/29/20 Time of Service: 14:40 Assessment and Plan Assessment and plan (1) Comfort measures only status: Start date: 11/29/20 Start time: 14:56 Status: Acute Assessment and plan: After several visits to the ED for various pain issues patient has been made comfort measures. her family would like to take her home on hospice. Hospice consult placed Palliative care consult placed At this time she is comfortable Coleman in place. (2) Acute exacerbation of chronic low back pain: Start date: 11/29/20 Start time: 14:57 Status: Acute Assessment and plan: as above (3) Dementia: Start date: 11/29/20 Start time: 14:57 Status: Chronic Assessment and plan: as above severe disease, declining (4) Jaw pain: Start date: 11/29/20 Start time: 14:58 Status: Acute Assessment and plan: diagnosed with TMJ discussed with Dr. 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 ED diagnosed patient with TMJ. Family felt that her dementia has become too much and want her to go comfort measures and go on hospice. ED provider reached out to Palliative. Palliative unavailable at the time they have asked hospitalists group to admit patient to m/s for further management. Patient admitted to m/s for comfort measures. At this time she appears comfortable. Family at bedside with patient. Review of Systems All systems reviewed & are unremarkable except as noted in HPI and below PFSH Medical History Anxiety Arthritis of left hip Arthritis of right hip Atrial fibrillation Bowel dysfunction Dementia Onset 2012 Encounter for medication management Essential hypertension External hemorrhoids (01/18/13) Excision by Dr. Levy Epperson 01-18-13--admitted postoperative for pain control. Goiter Greater trochanteric bursitis of left hip Greater trochanteric bursitis of right hip Injection: 05/05/2019 Hyperlipidemia Hyperthyroidism (12/26/12) Hypothyroidism Impacted cerumen of left ear Irritability and anger Memory impairment of gradual onset (12/26/12) Previous MMSE 23/30 & 22/30 Osteopenia Swelling of left ankle joint (11/12/17) Urge incontinence Weakness generalized Weight loss observed on examination (02/20/17) Surgical History Abdominal hysterectomy Anoscopy (01/15/13) DR. EPPERSON Status post abdominal hysterectomy Family History Mother , AGE 94 Hip fx Depression Father , 72 Essential hypertension Heart disease Myocardial infarction Bladder cancer Brother Dementia Daughter , 52 Depression Hypertension High cholesterol Daughter Breast cancer Daughter Essential hypertension Depression Hyperlipidemia Daughter Depression Breast cancer High cholesterol Hypertension Paternal Grandfather Heart disease Alzheimer disease Maternal Grandmother Breast cancer Ovarian cancer Paternal Grandmother Uterine cancer Social History Smoking/Tobacco Use Status: Former Tobacco Use Quit Date: 06/04/83 Tobacco: How many years used: 25 Second Hand Exposure: Yes Smoking risk assessment performed?: Yes Alcohol Intake: former Drug use: Never Substance use type: does not use Counseling given: No Counseling provided: none Caregiver/Support person: Yes Household members: spouse Housing: apartment Communication Needs: None Do you need help understanding health information?: Always Pets and animals: Yes Pets and animals: dog(s) Sexually active: No Do you think of yourself as: straight/heterosexual Current gender identity: female What is your relationship status?: How often do you talk on the phone with friends or family?: twice per week How often do you get together with friends or relatives?: three or more times per week Do you belong to any clubs or organized social groups?: no Panel score (0-1 are the most socially isolated patients): 2 What type of physical activity do you participate in: none Carmella/Sikhism: Synagogue Special carmella needs: No Seatbelt use: always Drive intox or ride w/intox horse and wagon driver: No Do you feel safe at home: Yes Do you feel safe in your relationship?: Yes Meds Allergies and Home Medications Allergies Allergy/AdvReac Type Severity Reaction Status Date / Time codeine AdvReac sick to Verified 11/28/20 19:53 stomache Home Medications Medication Instructions Recorded Confirmed Type food supplemt, lactose-reduced See Rx Instructions PO .COMPLEX 04/22/19 11/28/20 Rx 0.04 gram-1 kcal/mL oral liquid #6399 ml levothyroxine 88 mcg capsule 88 mcg PO DAILY #90 cap 04/26/20 11/28/20 Rx polyethylene glycol 3350 17 17 g PO HS PRN g 05/25/20 11/28/20 History gram/dose oral powder quetiapine 100 mg tablet 100 mg PO QHS PRN #90 tab 07/05/20 11/28/20 Rx quetiapine 25 mg tablet 25 - 75 mg PO BID #360 tab 10/13/20 11/28/20 Rx acetaminophen 500 mg tablet 1,000 mg PO BID #100 tab 11/05/20 11/28/20 Rx sertraline 100 mg tablet 150 mg PO DAILY #135 tab 11/05/20 11/28/20 Rx diclofenac sodium 1 % topical gel 2 g TP QID PRN #150 g 11/15/20 11/28/20 Rx diazepam [Valium] 5 mg PO Q8H PRN #14 tab 11/27/20 11/28/20 Rx Exam Narrative Exam Narrative: Elderly female, confused, alert, eyes closed lying in bed. Appears comfortable. HR RRR no murmur ectopic beats. LSC. abd soft NT. Results Labs Labs: Laboratory Results - last 24 hr 11/29/20 12:45 COVID-19 Source Nasal/Nares SARS-CoV-2 (PCR) Negative Last Vital Signs Temp 36.1 C L 11/29/20 13:09 Pulse 74 11/29/20 13:09 Resp 18 11/29/20 13:09 BP 144/76 H 11/29/20 13:09 Pulse Ox 99 11/29/20 13:09
[2020-11-29 15:24] VITALS: BP 144/76; PULSE 74; RESP 18; TEMP 36.1; O2SAT 99
[2020-11-29] MEDS: Scopolamine 1 MG/3 DAYS PATCH TD (17:37)
[2020-11-29] MEDS: LORazepam 2 MG/ML VIAL IVP ×2 (17:56→19:50)
[2020-11-29] MEDS: Normal Saline Flush 10 ML SYR IVP ×4 (18:07→19:58)
--- NOTE | 2020-11-29 18:38 | PCNE_ITS ---
Date of service: 11/29/20 Time of Service: 18:38 History of Present Illness History of Present Illness Chief Complaint: pain, dementia Narrative: I am meeting with Celestino, her Tony, and her daughter. Celestino is an 80-year-old woman who has severe dementia. She is presently being cared for in a community group home. In the last week she has been to the emergency room 3 times with pain and agitation. Family feels that her pain is not well controlled and her anxiety associated with dementia is worsening. They would like to take her home on hospice care if possible. Earlier today I was told she was comfortable. When I met with her she was pulling on the blanket, furrowed head, having bladder irritability and looked very uncomfortable. Family was concerned about her discomfort and mostly wanted her to be comfortable Assessment and Plan Assessment and plan (1) Acute exacerbation of chronic low back pain: Status: Acute Assessment and plan: Will treat her pain with IV morphine since she is not willing to take oral medication (2) Hip pain: Status: Acute (3) Comfort measures only status: Status: Acute Assessment and plan: Family is very clear. At this point they want to leave to be as comfortable as possible. They understand that she has end-stage dementia. They want to take her home on hospice if possible (4) Dementia: Status: Chronic Assessment and plan: I do not see every reversible cause of her present state. I agree with the family that she has end-stage dementia and that she is extremely anxious. She is starting to pick at the air and see people who were not there. We talked about the different stages of dying. We also talked about her present anxiety and the importance of getting this better under control. Since she will not take oral medication I am going to be using IV Haldol, morphine, and lorazepam. She seems to be revving up right now and hopefully we can reverse this and help her be comfortable. Recent urine did not show infection. Still she seems to be bothered by either the catheter or bladder spasms. I have written an order to have the catheter removed if she is more comfortable. Hospice consult has been placed. 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 Faye and he has asked me to write any appropriate orders. Review of Systems Narrative: Her family she is complaining about needing to urinate (Coleman in place), she is stating that her head hurts, her back hurts, and her hip hurts. Unobtainable due to mental condition [facility] Medical History Anxiety Arthritis of left hip Arthritis of right hip Atrial fibrillation Bowel dysfunction Dementia Onset 2012 Encounter for medication management Essential hypertension External hemorrhoids (01/18/13) Excision by Dr. Levy Epperson 01-18-13--admitted postoperative for pain control. Goiter Greater trochanteric bursitis of left hip Greater trochanteric bursitis of right hip Injection: 05/05/2019 Hyperlipidemia Hyperthyroidism (12/26/12) Hypothyroidism Impacted cerumen of left ear Irritability and anger Memory impairment of gradual onset (12/26/12) Previous MMSE 23/30 & 22/30 Osteopenia Swelling of left ankle joint (11/12/17) Urge incontinence Weakness generalized Weight loss observed on examination (02/20/17) Surgical History Abdominal hysterectomy Anoscopy (01/15/13) DR. EPPERSON Status post abdominal hysterectomy Family History Mother , AGE 94 Hip fx Depression Father , 72 Essential hypertension Heart disease Myocardial infarction Bladder cancer Brother Dementia Daughter , 52 Depression Hypertension High cholesterol Daughter Breast cancer Daughter Essential hypertension Depression Hyperlipidemia Daughter Depression Breast cancer High cholesterol Hypertension Paternal Grandfather Heart disease Alzheimer disease Maternal Grandmother Breast cancer Ovarian cancer Paternal Grandmother Uterine cancer Social History Smoking/Tobacco Use Status: Former Tobacco Use Quit Date: 06/04/83 Tobacco: How many years used: 25 Second Hand Exposure: Yes Smoking risk assessment performed?: Yes Alcohol Intake: former Drug use: Never Substance use type: does not use Counseling given: No Counseling provided: none Caregiver/Support person: Yes Household members: spouse Housing: apartment Communication Needs: None Do you need help understanding health information?: Always Pets and animals: Yes Pets and animals: dog(s) Sexually active: No Do you think of yourself as: straight/heterosexual Current gender identity: female What is your relationship status?: How often do you talk on the phone with friends or family?: twice per week How often do you get together with friends or relatives?: three or more times per week Do you belong to any clubs or organized social groups?: no Panel score (0-1 are the most socially isolated patients): 2 What type of physical activity do you participate in: none Carmella/Jehovah'S Witness: Jain Special carmella needs: No Seatbelt use: always Drive intox or ride w/intox recycling collections driver: No Do you feel safe at home: Yes Do you feel safe in your relationship?: Yes Exam Narrative Exam Narrative: Celestino looks very uncomfortable and agitated. She is reaching into her perineal area because of discomfort. She is not able to answer questions for me. Her feet are out of the blanket which is how she likes it. Eyes Alignment and Position: other (Celestino's eyes are mostly closed) Resp Effort & Inspection: labored Cardio Rate: regular rate Heart Sounds: murmur Back/Spine/Pelvis Thoracic/Lumbar Spine: lumbar spinal tenderness Neuro General: patient awake and unable to assess gait Cognition: abnormal cognition Speech: abnormal speech Psych Appearance: disheveled and other (she is reaching and speaking to people not present) Mood: anxious mood and paranoid Results Last Vital Signs Temp 97.0 F L 11/29/20 15:24 Pulse 74 11/29/20 15:24 Resp 18 11/29/20 15:24 BP 144/76 H 11/29/20 15:24 Pulse Ox 99 11/29/20 15:24 Functional Assessment Scale (FAST) 1 No difficulty either subjectively or objectively 2 Complains of forgetting location of objects. Subjective work difficulties 3 Decreased job functioning evident to co-workers. Difficulty in traveling to new locations. Decreased organizational capacity* 4 Decreased ability to perform complex task, (e.g., planning dinner for guests, handling personal finances, such as forgetting to pay bills, etc) 5 Requires assistance in choosing proper clothing to wear for the day, season, or occasion, (e.g., pt may wear the same clothing repeatedly unless supervised*) 6 Occasionally or more frequently over the past weeks for the following*: A) Improperly putting on clothes without assistance or cueing B) Unable to bathe properly (not able to choose proper water temp) C) Inability to handle mechanics of toileting (e.g., forget to flush the toilet, does not wipe properly or properly dispose of toilet tissue) D) Urinary Incontinence E) Fecal Incontinence 7 A) Ability to speak limited to approximately < 6 intelligible different words in the course of an average day or in the course of an intensive interview. B) Speech ability is limited to the use of a single intelligible word in an average day or in the course of an intensive interview C) Ambulatory ability is lost (cannot walk without personal assistance) D) Cannot sit up without assistance (e.g., the individual will fall over if there are not lateral rests [arms] on the chair) E) Loss of ability to smile. F) Loss of ability to hold up head independently *Scored primarily on information obtained from a knowledgeable informant. Patient Score:7D Palliative Performance Scale % Ambulation Activity and Evidence of Disease Self Care Intake Level of Consciousness 100 Full Normal activity, no evidence of disease Full Normal Full 90 Full Normal activity, some evidence of disease Full Normal Full 80 Full Normal activity with effort, some evidence of disease Full Normal or reduced Full 70 Reduced Unable to do normal work, some evidence of disease Full Normal or reduced Full 60 Reduced Unable to do hobby or some housework, significant disease Occasional assist necessary Normal or reduced Full or confusion 50 Mainly sit/lie Unable to do any work, extensive disease Considerable assistance required Normal or reduced Full or confusion 40 Mainly in bed Unable to do any work, extensive disease Mainly assistance Normal or reduced Full, drowsy, or confusion 30 Totally bed bound Unable to do any work, extensive disease Total care Reduced Full, drowsy, or confusion 20 Totally bed bound Unable to do any work, extensive disease Total care Minimal sips Full, drowsy, or confusion 10 Totally bed bound Unable to do any work, extensive disease Total care Mouth care only Drowsy or coma 0 - - - - Patient Score: 20% Labs Labs: Laboratory Results - last 24 hr 11/29/20 12:45 COVID-19 Source Nasal/Nares SARS-CoV-2 (PCR) Negative reviewed labs from 11/27 - wnl CT head and neck: MPRESSION: No acute intracranial findings on this noninfused CT scan of the brain. No evidence of cervical spine fracture, malalignment, nor acute compromise of the cervical spinal canal. Multilevel degenerative changes in the cervical spine evident. Lumbar CT PRESSION: 1. Degenerative changes as described above. No evidence of acute fracture. 2. No prominent-severe central spinal canal stenosis and no significant foraminal stenosis. 3. Mild degenerative anterolisthesis of L4 upon L5 due to facet arthropathy. Abd/Pelvis PRESSION: 1. Mildly varicose left pelvic veins which drain into a slightly prominent left gonadal vein which itself drains into the left renal vein which itself is retroaortic and compressed (but not thrombosed) between the posterior wall of the aorta and the adjacent vertebral body. There is no evidence of thrombosis of these veins. 2. Uterus is surgically absent. There is fluid in the vagina and cervix remnant, possibly significant 3. Right kidney benign cyst. 4. No ascites. No free air.
[2020-11-29] MEDS: MORPHine 4 MG/ML SYR IVP (19:40)
[2020-11-29] MEDS: Haloperidol 5 MG/ML VIAL 2 MG IM/IV (19:58)
[2020-11-30] MEDS: LORazepam 2 MG/ML VIAL IVP (00:42)
[2020-11-30] MEDS: Normal Saline Flush 10 ML SYR IVP ×2 (00:43→01:01)
[2020-11-30] MEDS: MORPHine 4 MG/ML SYR IVP (01:01)
--- NOTE | 2020-11-30 07:09 | W.PALPGNOTE ---
Date of service: 11/30/20 Time of Service: 07:09 Assessment and Plan Assessment and plan (1) Acute exacerbation of chronic low back pain: Status: Acute (2) Weakness generalized: Status: Acute (3) Dementia: Status: Chronic Assessment and plan: Celestino appears to be actively dying at this time. Her Tony would like her to get home. I did speak with hospice about doing a hospice consult and facilitating this BRENDA I am switching her over to a fentanyl patch in anticipation of her going home. She could have liquid morphine Ativan and Haldol if needed. The family would like her to have last rights. I have put the order in. I have spoken to Dr. Shen about her and family wishes Subjective Subjective Interval history since last seen: Celestino is lying in bed. She is surrounded by family. Her Tony states that she looks comfortable. Exam Narrative Exam Narrative: Celestino is lying in bed. Her mouth is open. Lip and mouth care have been recently done. Her heart rate is about 75-80. She looks comfortable most of the time but does grimace. Family states that is only been in the last 10 minutes that she has been grimacing. Her breathing is regular. Objective Last Vital Signs Temp 97.0 F L 11/29/20 15:24 Pulse 74 11/29/20 15:24 Resp 18 11/29/20 15:24 BP 144/76 H 11/29/20 15:24 Pulse Ox 99 11/29/20 15:24 Laboratory Results - last 24 hr 11/29/20 12:45 COVID-19 Source Nasal/Nares SARS-CoV-2 (PCR) Negative
[2020-11-30] MEDS: fentaNYL 50 MCG PATCH TD (08:27)
--- NOTE | 2020-11-30 12:55 | W.PM.DS.N ---
Date of service: 11/30/20 Time of Service: 12:55 DS: Diagnosis Discharge Diagnosis (1) Acute exacerbation of chronic low back pain: Status: Acute (2) Weakness generalized: Status: Acute (3) Dementia: Status: Chronic Discharge Plan Disposition Patient Disposition: HOME W/HOME HEALTH SERVICE Condition: Serious Discharge Details Reason For Visit: Neck Pain, Comfort Measure Admit Date/Time: 11/29/20 12:09 Admit Provider: Tom Mcfadden Attending Provider: Tom Mcfadden Primary Care Provider: Stefanie Jack Hospital Course Hospital Course: This is a 80 y.o female with severe dementia that was brought to the emergency room for the third time over the last week with complaints of initially back pain, found to have no etiology of pain, then brought back for neck pain with again no etiology, given tylenol, oxycodone, and recommended to ice then returns again for c/o neck pain. ED diagnosed patient with TMJ. Family felt that her dementia has become too much and want her to go comfort measures and go on hospice. ED provider reached out to Palliative. Palliative unavailable at the time they have asked hospitalists group to admit patient to m/s for further management. Patient was admitted to m/s for comfort measures. She was seen by palliative and plan is to discharge home on hospice care. her pain has been managed with a fentanyl patch which will be continued on discharge. discharge discussed with DR Mcfadden. Home Meds and New Rx's Prescriptions: New fentanyl 50 mcg/hr Patch 72 Hour 50 mcg transdermal Q72H Qty: 3 RF: 0 promethazine 25 mg Tablet 25 mg PO Q6H PRN PRN (Reason: Nausea) Qty: 10 RF: 0 scopolamine base 1 mg over 3 days Patch 3 Day 1 mg transdermal Q72H Qty: 12 RF: 0 ondansetron 4 mg Tablet,Disintegrating 4 mg PO Q4H PRN PRNQty: 12 RF: 0 Continued quetiapine [Seroquel] 25 mg tablet 25 - 75 mg PO BID Qty: 360 RF: 3 quetiapine [Seroquel] 100 mg tablet 100 mg PO QHS PRN (Reason: agitation) Qty: 90 RF: 3 diclofenac sodium 1 % gel 2 g TP QID PRN (Reason: pain) Qty: 150 RF: 2 diazepam [Valium] 5 mg tablet 5 mg PO Q8H PRN (Reason: muscle spasm) Qty: 14 RF: 0 Discontinued Boost 0.04 gram- 1 kcal/mL liquid See Rx Instructions PO .COMPLEX Qty: 6399 RF: 4 levothyroxine 88 mcg capsule 88 mcg PO DAILY Qty: 90 RF: 11 polyethylene glycol 3350 [Miralax] 17 gram/dose powder 17 g PO HS PRNRF: 0 sertraline 100 mg tablet 150 mg PO DAILY Qty: 135 RF: 3 acetaminophen 500 mg tablet 1,000 mg PO BID Qty: 100 RF: 0 Discharge Instructions Instructions: Chronic Pain (DC), Dementia (ED) Additional Instructions: comfort care per hospice. Referrals: &[facility] [OTHER] - Activity:: Activity as Tolerated Equipment/Supplies:: No Equipment Needed Diet:: As Tolerated Discharge Orders Discharge Orders: Discharge Order (Routine); Ordered 11/30/20 Ordered By: Ritu Bauer DS: Summary Time Spent with Patient providing and/or coordinating discharge services: Less than 30 minutes Status at Discharge Functional status at discharge: bed bound Overall status at discharge: patient is not back to baseline Mental Status: other (sedate, demented) Speech and Movement: other Mood: other Affect: other Exam Const General: no acute distress and frail appearing Nutritional Appearance: average body habitus Orientation: other (sedate, arouses to touch) HENMT Head: normal to inspection, normocephalic and atraumatic Mouth: moist mucous membranes abnormal (dry) Resp Effort & Inspection: normal respiratory effort (no distress at this time) Cardio Rate: regular rate Neuro General: patient awake and unable to assess gait Cognition: abnormal cognition Speech: abnormal speech Psych Mental Status: other Speech and Movement: other Mood: other Affect: other DS: Data Vitals/I&O Vitals and I&O: Vital Signs Temperature 36.1 C L 11/29/20 15:24 Temperature Source Tympanic 11/29/20 13:09 Pulse 74 11/29/20 15:24 Respiratory Rate 18 11/29/20 15:24 Respiratory Effort Non-Labored 11/29/20 15:24 Respiratory Depth Normal 11/29/20 15:24 Respiratory Pattern Normal 11/28/20 22:30 Blood Pressure 144/76 H 11/29/20 15:24 Blood Pressure Position Supine 11/28/20 19:47 Pulse Oximetry 99 06/28/21 15:24 Oxygen Delivery Method Room Air 11/29/20 15:24 Oxygen Flow Rate 0 11/29/20 15:24 Pain Level 0 11/29/20 12:44 Intake & Output 11/29/20 11/30/20 11/30/20 23:59 11:59 23:59 Output Total 300 / 300 Balance -300 / -300 Output: Urine 300 / 300 Other: Urine Color Dark Clary Yellow Urine Appearance Clear Clear Comment appeared to be leaking some and pad was changed when patient was repositioned Data Completed and Pending Labs on day of discharge: Labs from last 24 hours 11/29/20 12:45 SARS-CoV-2 (PCR) Negative [facility] Medical History Anxiety Arthritis of left hip Arthritis of right hip Atrial fibrillation Bowel dysfunction Dementia Onset 2012 Encounter for medication management Essential hypertension External hemorrhoids (01/18/13) Excision by Dr. Levy Epperson 01-18-13--admitted postoperative for pain control. Goiter Greater trochanteric bursitis of left hip Greater trochanteric bursitis of right hip Injection: 05/05/2019 Hyperlipidemia Hyperthyroidism (12/26/12) Hypothyroidism Impacted cerumen of left ear Irritability and anger Memory impairment of gradual onset (12/26/12) Previous MMSE 23/30 & 22/30 Osteopenia Swelling of left ankle joint (11/12/17) Urge incontinence Weakness generalized Weight loss observed on examination (02/20/17) Surgical History Abdominal hysterectomy Anoscopy (01/15/13) DR. EPPERSON Status post abdominal hysterectomy Family History Mother , AGE 94 Hip fx Depression Father , 72 Essential hypertension Heart disease Myocardial infarction Bladder cancer Brother Dementia Daughter , 52 Depression Hypertension High cholesterol Daughter Breast cancer Daughter Essential hypertension Depression Hyperlipidemia Daughter Depression Breast cancer High cholesterol Hypertension Paternal Grandfather Heart disease Alzheimer disease Maternal Grandmother Breast cancer Ovarian cancer Paternal Grandmother Uterine cancer Social History Smoking/Tobacco Use Status: Former Tobacco Use Quit Date: 06/04/83 Tobacco: How many years used: 25 Second Hand Exposure: Yes Smoking risk assessment performed?: Yes Alcohol Intake: former Drug use: Never Substance use type: does not use Counseling given: No Counseling provided: none Caregiver/Support person: Yes Household members: spouse Housing: apartment Communication Needs: None Do you need help understanding health information?: Always Pets and animals: Yes Pets and animals: dog(s) Sexually active: No Do you think of yourself as: straight/heterosexual Current gender identity: female What is your relationship status?: How often do you talk on the phone with friends or family?: twice per week How often do you get together with friends or relatives?: three or more times per week Do you belong to any clubs or organized social groups?: no Panel score (0-1 are the most socially isolated patients): 2 What type of physical activity do you participate in: none Carmella/Zoroastrianism: Religious Special carmella needs: No Seatbelt use: always Drive intox or ride w/intox goat driver: No Do you feel safe at home: Yes Do you feel safe in your relationship?: Yes
--- NOTE | 2020-11-30 15:59 | PDOC.CMPRO ---
- If Service Date Differs Date of service: 11/30/20 Time of Service: 15:59 Care Management Progress Note S/O: Lashaun was lying in bed when CM met with her. She was not responsive, but her daughters were in the room, visiting. They were on either side of her, holding her hands and providing support to her and each other. CM reviewed the plan, which is for her to return home with her , and the three daughters will be present, providing support 25/12. She will have a hospital bed and bedside table delivered by 2pm. CM coordinated EMS transport via [facility] at 3pm. The family was very appreciative for the support, and are looking forward to taking their mother home to pass, as this was her wish. A: Lashaun is an 80 year old female admitted to [facility] on 11/29/20 for comfort measures. P: Lashaun will return home today with her and three daughters supporting her. She will have equipment delivered by [facility], and will be admitted to Hospice later this afternoon. CM coordinated EMS transport via [facility]. Her family is supportive and agreeable to the plan.
--- NOTE | 2020-12-08 09:48 | CHAPLAIN ---
On-call Field Services DirectorRev. Christel garnett was called to arrange for Lashaun to have anointing of the sick. Fr. Husain responded and met with Lashaun.
== END 2020-11-30 14:51 | disposition home health service (06) ==
LOC: ER 11-29 12:55 → MS 11-29 13:04
PROVIDERS: Physician Assistant; Admitting Provider Family Medicine; Emergency Provider Family Medicine; Visit Provider Family Medicine
DX: Z51.5 Encounter for palliative care (principal); M54.5 Low back pain; G89.29 Other chronic pain; R53.1 Weakness; F03.90 Unspecified dementia, unspecified severity, without behavioral disturbance, psychotic disturbance, mood disturbance, and anxiety; M26.629 Arthralgia of temporomandibular joint, unspecified side; F41.9 Anxiety disorder, unspecified; M16.0 Bilateral primary osteoarthritis of hip; I48.91 Unspecified atrial fibrillation; I10 Essential (primary) hypertension; E04.9 Nontoxic goiter, unspecified; E78.5 Hyperlipidemia, unspecified; E03.9 Hypothyroidism, unspecified; N39.41 Urge incontinence
CPT/HCPCS: 36415; 51702; 87635; 96365; 96372; 96375; 99285; 99217; 99219; 99284; G0378; J0131; J1630; J1885; J2060; J2270